=== PATIENT | female | born 1945 | race Caucasian/White ===

== ENCOUNTER → 2016-08-31 | Outpatient (CLI) | payer BC ==
[~2016-08-31] MED LIST: ASPI81TA28 PO; ATV/1 PO; CHOL1000 PO; COEN1CAP37 PO; IRON15SU PO; LISI-461 PO; LISI5TAB PO; LIVALO PO; PRIM50TA29 PO; PROP60CA5 PO; SERT100T PO; TEMA15CA4 PO
--- NOTE | 2016-08-31 08:11 | DIAGNOSTIC IMAGING REPORT ---
CHEST 2 VIEWS ROUTINE HISTORY: Follow-up lung abnormality. J18.9 Lung infection COMPARISON: Chest 08/03/2016. FINDINGS: No focal lung consolidations to suggest pneumonia. No evidence for pulmonary edema. The heart is normal in size. No pleural effusions. No pneumothorax. Mild anterior wedging within the T12 vertebral body. This is likely old. IMPRESSION: No acute process. Electronically signed by: Kwaku Blackman M.D. 08/31/2016 8:08 AM Dictated Date/Time: 08/31/2016 8:07 AM
== END | disposition home or self-care (01) ==
LOC: C.RAD 07:21
PROVIDERS: ATTEND Internal Medicine
DX: J18.9 Pneumonia, unspecified organism (principal)

== ENCOUNTER → 2016-10-26 | Outpatient (CLI) | payer BC ==
--- NOTE | 2016-10-26 16:44 | DIAGNOSTIC IMAGING REPORT ---
RIGHT ANKLE MIN 3 VIEWS ROUTINE CLINICAL HISTORY: M25.571 Right ankle [id number] Right pain COMPARISON: None. DISCUSSION: Small heel spur. No acute bony abnormality. Alignment is anatomic. There is no evidence for soft tissue swelling. IMPRESSION: Small heel spur. Otherwise negative study Electronically signed by: Ivan Bolivar M.D. 10/26/2016 4:42 PM Dictated Date/Time: 10/26/2016 4:42 PM
[2016-10-26 17:42] LABS: BASO % 0.5 %; BASO ABS # 0.03 K/uL (0-0.2); COMPLETE YES; EOS % 2.7 %; HEMATOCRIT 36.3 % (37-47); IG% 0.2 %; LYMPH % 40.3 %; LYMPH ABS # 2.24 K/uL (1.2-3.4); MEAN CELL VOLUME 92.4 fL (80-100); MEAN CORPUSCULAR HEMOGLOBIN 30.3 pg (25-34); MEAN CORPUSCULAR HGB CONC 32.8 g/dl (32-36); MEAN PLATELET VOLUME 10.6 fL (7.4-10.4); MONO % 6.5 %; NEUT % 49.8 %; PLATELET COUNT 208 K/uL (130-400); RED BLOOD COUNT 3.93 M/uL (4.2-5.4); WHITE BLOOD COUNT 5.56 K/uL (4.8-10.8)
[2016-10-26 18:19] LABS: ALT/SGPT 28 U/L (12-78); AST/SGOT 31 U/L (15-37); BLOOD UREA NITROGEN 16 mg/dl (7-18); BUN/CREATININE RATIO 12.6 (10-20); CALCIUM 8.9 mg/dl (8.5-10.1); CARBON DIOXIDE 31 mmol/L (21-32); CHLORIDE 104 mmol/L (98-107); GLUCOSE 83 mg/dl (70-99); POTASSIUM 4.1 mmol/L (3.5-5.1); SODIUM 140 mmol/L (136-145)
[2016-10-26 18:29] LABS: ALB/GLOB RATIO 1.3 (0.9-2); ALKALINE PHOSPHATASE 88 U/L (45-117)
== END | disposition home or self-care (01) ==
LOC: C.RAD1850 16:32
PROVIDERS: ATTEND Internal Medicine
DX: M25.571 Pain in right ankle and joints of right foot (principal); R79.89 Other specified abnormal findings of blood chemistry; D64.9 Anemia, unspecified

== ENCOUNTER → 2016-12-10 | Outpatient (CLI) | payer BC ==
[~2016-12-10] MED LIST changes: +ACET-1311 PO; +ASPEC325 PO; +NAPR500T3 PO; +PRED20TA PO; +ROSU5TAB9 PO; +RXC/5 PO; +RXC5 PO; +TRAM-10 PO; +TYLOTC500 PO
--- NOTE | 2016-12-12 08:29 | MAMMOGRAPHY REPORT ---
BILATERAL DIGITAL SCREENING MAMMOGRAM WITH CAD: 12/10/2016 CLINICAL HISTORY: Routine screening. Patient has no complaints. TECHNIQUE: Bilateral CC and MLO views were obtained. Current study was also evaluated with a Comput er Aided Detection (CAD) system. COMPARISON: Comparison is made to exams dated: 12/05/2015 mammogram, 12/02/2014 mammogram, 11/26/2013 mammogram, 11/12/2012 mammogram, 10/31/2011 ultrasound, and 10/31/2011 mammogram - [facility]. BREAST COMPOSITION: There are scattered areas of fibroglandular density in both breasts. FINDINGS: The parenchymal pattern is unchanged. No developing mass, architectural distortion or clu ster of suspicious microcalcifications is seen in either breast. No suspicious mass, architectural distortion or cluster of microcalcifications is seen. IMPRESSION: ACR BI-RADS CATEGORY 2: BENIGN There is no mammographic evidence of malignancy. A 1 year screening mammogram is recommended. The p atient will receive written notification of the results. Approximately 10% of breast cancers are not detected with mammography. A negative mammographic repor t should not delay biopsy if a clinically suggestive mass is present. Jenny Orellana M.D. ay/:12/11/2016 15:49:18 Director Pediatric: Momo MORRIS(R)(M), [facility] letter sent: Normal 1/2 BI-RADS Code: ACR BI-RADS Category 2: Benign
== END | disposition home or self-care (01) ==
LOC: C.MAMM 07:01
PROVIDERS: ATTEND Obstetrics & Gynecology
DX: Z12.31 Encounter for screening mammogram for malignant neoplasm of breast (principal)

== ENCOUNTER → 2017-04-09 | Outpatient (CLI) | payer BC ==
[~2017-04-09] MED LIST changes: -ACET-1311 PO; -ASPEC325 PO; -NAPR500T3 PO; -PRED20TA PO; -ROSU5TAB9 PO; -RXC/5 PO; -RXC5 PO; -TRAM-10 PO; -TYLOTC500 PO
== END | disposition home or self-care (01) ==
LOC: C.PAPS 14:26
PROVIDERS: ATTEND Obstetrics & Gynecology
DX: Z01.419 Encounter for gynecological examination (general) (routine) without abnormal findings (principal)

== ENCOUNTER → 2017-05-28 | Outpatient (CLI) | payer BC | END | disposition home or self-care (01) | LOC: C.MAMM 15:16 | PROVIDERS: ATTEND Internal Medicine | DX: M85.852 Other specified disorders of bone density and structure, left thigh (principal); M85.851 Other specified disorders of bone density and structure, right thigh ==

== ENCOUNTER 2017-06-01 08:23 | Emergency (ER) | payer BC ==
[~2017-06-01] VITALS: Ht 154.9 cm; Wt 72.7 kg
[2017-06-01 08:31] VITALS: TEMP 36.6; Ht 154.9 cm; Wt 72.7 kg
--- NOTE | 2017-06-01 09:02 | EMERGENCY ROOM VISIT NOTE ---
History Report prepared by Alisa: Brooklyn Avila Under the Supervision of: Dr. Vincent Ann M.D. First contact with patient: 08:50 Chief Complaint: KNEEPAIN Stated Complaint: LEFT KNEE SWOLLEN AND VERY PAINFUL History of Present Illness The patient is a 71 year old female who presents to the Emergency Room with complaints of worsening left knee pain for the past day. Her left knee started hurting yesterday afternoon while she was at work. Throughout the night her pain worsened. This morning she noticed swelling to the knee and pain in her left ankle. She rates her pain as a 9/10 in severity. Movement of the knee exacerbates her pain. The patient denies any recent trauma or injury. She has not changed her shoes recently. Typically the patient sits at a desk at work, but she states for the past week she was on her feet more than usual. She took Tylenol for her pain without any relief. Source of History: patient Onset: yesterday afternoon Position: knee (left) Symptom Intensity: 9/10 Timing: worsening Modifying Factors (Worsening): movement Note: Pt denies trauma or injury. Pt notes left ankle pain. Review of Systems All systems have been listed, reviewed, and are negative other than those previously mentioned. Please see Additional Medical History Sheet. Past Medical & Surgical Medical Problems: (1) CVA (cerebrovascular accident due to intracerebral hemorrhage) (2) Fall (3) Hyperlipidemia (4) Labyrinthitis (5) Lumbar stenosis (6) Vertigo Family History Patient reports no known family medical history. Social History Smoking Status: Never Smoker Alcohol Use: none Drug Use: none Marital Status: Housing Status: lives with family Occupation Status: employed Current/Historical Medications Scheduled Aspirin (Aspirin Ec), 81 MG PO DAILY Cholecalciferol (Vitamin D3), 1,000 UNITS PO DAILY Coenzyme Q10 (Ubidecarenone) (Co Q-10), 200 MG PO HS Iron (Mykidz Iron 10), 0.5 ML PO 430 PM Lisinopril (Prinivil), 5 MG PO QAM Lisinopril (Zestril), 10 MG PO DAILY Prednisone (Prednisone), 20 MG PO BID Primidone (Mysoline), 50 MG PO BID Propranolol Hcl (Inderal La), 60 MG PO QAM Sertraline Hcl (Zoloft), 100 MG PO BID Temazepam (Restoril), 15 MG PO HS [Livalo], 4 MG PO QAM Scheduled PRN Lorazepam (Ativan), 1 MG PO TID PRN Tramadol (Ultram), 50 MG PO Q4H PRN for Pain Allergies Coded Allergies: Sulfa Drugs (Unverified Allergy, Intermediate, HIVES/ SWELLING ALL OVER, 08/03/16) Uncoded Allergies: STEROID PILL (Allergy, Intermediate, DEPRESSION, 04/06/15) Physical Exam Vital Signs Date Time Temp Pulse Resp B/P (MAP) Pulse Ox O2 Delivery O2 Flow Rate FiO2 06/01/17 09:30 78 18 146/95 97 06/01/17 08:31 36.6 77 18 139/83 98 Room Air Physical Exam GENERAL: Patient awake, alert, oriented x 3. Patient follows commands. Patient does not appear toxic. Patient is adequately hydrated and well- nourished. SKIN: No erythema, pallor, cyanosis or rash HEENT: Normal head, pupils equal, reactive to light and accommodation. LUNGS: Clear to auscultation. No wheezes, no rales, no rhonchi. HEART: No murmurs. No gallops. No rubs EXTREMITIES: Patient has some swelling of the left knee, no joint laxity, slight increased tenderness on the lateral aspect of the knee, no erythema or increased warmth, FROM. Left ankle with slight tenderness, no erythema, no swelling, no joint laxity. NEUROLOGIC: Cranial nerves II-XII within normal limits. No gross motor sensory function deficits. Medical Decision & Procedures ER Provider Diagnostic Interpretation: Radiology results as stated below per my review and radiologist interpretation: LEFT KNEE 3 VIEWS CLINICAL HISTORY: Left knee pain and swelling. FINDINGS: AP, crosstable lateral, and sunrise views of left knee are obtained. No prior studies are available for comparison at the time of dictation. The skeletal structures are osteopenic. No fracture is seen. There is minimal tricompartmental degenerative joint space narrowing. A joint effusion is identified. Mild prepatellar soft tissue swelling is noted. IMPRESSION: Mild soft tissue swelling and moderate joint effusion. No left knee fracture is seen. Electronically signed by: Doyle Verde M.D. 06/01/2017 9:00 AM Dictated Date/Time: 06/01/2017 8:58 AM Medications Administered Medications (Trade) Dose Ordered Sig/Janay Route Start Time Stop Time Status Last Admin Dose Admin Prednisone (PredniSONE TAB) 40 mg NOW STAT PO 06/01/17 09:02 06/01/17 09:04 DC 06/01/17 09:14 40 MG ED Course 0850: Past medical records reviewed. The patient was evaluated in room C3. A complete history and physical examination was performed. 0902: Prednisone 40 mg PO 0921: I reassessed the patient at this time. She is feeling better and resting comfortably. I discussed the results and treatment plan with the patient. I answered all pertaining questions that she had. She expressed understanding and verbalized agreement. The patient will be discharged home. Medical Decision Nurses notes reviewed. Medical history sheet reviewed. Differential diagnosis includes but is not limited to: fracture, dislocation, arthritis, bursitis, gout. Examination of the knee reveals no significant erythema or increased warmth. Patient does not appear to have an infected joint. Patient appears to have some inflammation. She has been on her feet a lot more recently. The patient is unable to take NSAIDs and therefore she will be placed on a short course of prednisone. She will also be given a prescription for tramadol. Patient is to follow-up with her family physician or orthopedics if the knee is not improving over the next week. Medication Reconcilliation Current Medication List: was personally reviewed by me Blood Pressure Screening Patient's blood pressure: Elevated blood pressure Blood pressure disposition: Elevated BP felt to be situational Impression Primary Impression: Arthritis of left knee Additional Impression: Joint effusion of knee Scribe Attestation The scribe's documentation has been prepared under my direction and personally reviewed by me in its entirety. I confirm that the note above accurately reflects all work, treatment, procedures, and medical decision making performed by me. Departure Information Dispostion Home / Self-Care Prescriptions Prednisone (Prednisone) 20 Mg Tab 20 MG PO BID, #9 TAB Prov: Vincent Ann M.D. 06/01/17 Tramadol (Ultram) 50 Mg Tab 50 MG PO Q4H Y for Pain, #20 TAB Prov: Vincent Ann M.D. 06/01/17 Referrals RV. Mcclendon MD (PCP) Patient Instructions My [facility] Additional Instructions Wear the Atif wrap for the next 10 days. It may be removed for bathing. 20 mg of prednisone twice a day for 5 days. 1 tramadol every 4 hours as needed for moderate to severe pain. Follow-up with your family physician or orthopedist in one week if symptoms are not improving. Problem Qualifiers
[2017-06-01] MEDS ORDERED: TRAM-10 PO (09:08)
[2017-06-01] MEDS ORDERED: PRED20TA PO (09:08)
[2017-06-01 09:30] VITALS: BP 146/95; PULSE 78; O2SAT 97
== END 2017-06-01 09:30 | disposition home or self-care (01) ==
LOC: C.EDB 08:25 → C.EDC 09:30
DX: M08.462 Pauciarticular juvenile rheumatoid arthritis, left knee (principal); M25.462 Effusion, left knee; I63.9 Cerebral infarction, unspecified; E78.5 Hyperlipidemia, unspecified; Z79.82 Long term (current) use of aspirin

== ENCOUNTER → 2017-06-17 | Outpatient (CLI) | payer BC ==
[~2017-06-17] MED LIST changes: +ACET-1311 PO; +ASPEC325 PO; +NAPR500T3 PO; +PRED20TA PO; +ROSU5TAB9 PO; +RXC/5 PO; +RXC5 PO; +TRAM-10 PO; +TYLOTC500 PO
[2017-06-19 22:16] LABS: HLA-B27** TC 528X NEGATIVE (NEGATIVE)
== END | disposition home or self-care (01) ==
LOC: C.LAB 10:00
PROVIDERS: ATTEND Orthopaedic Surgery
DX: M25.562 Pain in left knee (principal)

== ENCOUNTER → 2017-06-27 | Outpatient (CLI) | payer BC | END | disposition home or self-care (01) | LOC: C.RDSM 16:33 | PROVIDERS: ATTEND Orthopaedic Surgery | DX: T14.8XXA Other injury of unspecified body region, initial encounter (principal); X58.XXXA Exposure to other specified factors, initial encounter ==

== ENCOUNTER 2017-07-01 16:17 | Observation (INO) | payer BC ==
[~2017-07-01] VITALS: Ht 154.9 cm; Wt 70.4 kg
[~2017-07-01 16:17] MED LIST changes: -ACET-1311 PO; -ASPEC325 PO; -ATROPINE SULFATE 0.1 MG/ML 5ML SYR IV PRN; -CEFAZOLIN 2000MG IV PUSH 10 ML IV SCH; -EpHEDrine SULFATE 50MG/5ML SYR ONE; -EpHEDrine SULFATE INJ 50 MG/ML AMP IV PRN; -EpINEphrine HCL INJ 1 MG/ML 5ML SYRINGE ONE; -FENTANYL CITRATE INJ 50 MCG/1 ML 2 ML VIAL ONE; -HYDROmorphone INJ 1 MG/ML SYR IV PRN; -IRON15SU PO; -LACTATED RINGER'S 1000ML 1,000 ML IV SCH; -LIDO 2%/EPINEPHRINE 1:100000 20 ML VIAL INFIL ONE; -LIDOCAINE HCL 2% 2 ML VIAL (20MG/ML) ONE; -LISI-461 PO; -LIVALO PO; -METOCLOPRAMIDE HCL INJ 5 MG/ML 2 ML VIAL IV PRN; -MIDAZOLAM HCL 1 MG/ML 2ML VIAL ONE; -MoRPHine SULFATE 4 MG/ML 1 ML CARP\\VIAL IV PRN; -NAPR500T3 PO; -ONDANSETRON INJ 2 MG/ML 2 ML VIAL IV PRN; -ONDANSETRON INJ 2 MG/ML 2 ML VIAL ONE; -OXYCODONE/ACETAMINOPHEN 5-325 TAB PO PRN; -PRED20TA PO; -PROPOFOL IV EMULSION 10 MG/ML 20 ML VIAL IV ONE; -ROPIVACAINE 0.5% 5 MG/ML 30 ML VIAL ONE; -RXC/5 PO; -RXC5 PO; -SODIUM CHLORIDE 0.9% 1000ML 1,000 ML IV SCH; -TRAM-10 PO; -TYLOTC500 PO
[2017-07-01] MEDS ORDERED: OXYCODONE HCL IR 5 MG TAB (IMMEDIATE RELEASE) PO STA (16:30)
[2017-07-01] MEDS ORDERED: ACETAMINOPHEN 500 MG TAB PO STA (16:30)
--- NOTE | 2017-07-01 17:10 | EMERGENCY ROOM VISIT NOTE ---
History First contact with patient: 16:21 Chief Complaint: KNEEPAIN Stated Complaint: KNEE PAIN History of Present Illness The patient is a 71 year old female who presents to the Emergency Room via EMS with complaints of severe left knee pain. The patient states that she had knee surgery today at the outpatient surgery center in front of the hospital and got home at 2:45 PM. The patient states that her brother brought her home. She does not have anyone at home that can help her. The patient states that she was instructed to ambulate with a walker but did not put any weight on her left leg. She states she cannot get around at home. She took one of the pain pills they gave her but stated she could not read the bottle and cannot get to her glasses to read how many she was able to take. The patient states that she called into the office but they Giving her to someone else to talk to and she finally was talking to the PA and he was telling her a lot of different things which she did not understand therefore she has not been called 911. The patient states that she told orthopedic surgeon prior to the surgery about her situation at home and that she wanted to have it done at the hospital but they told her that she could not and would have to have it done at the surgery center. Review of Systems 10 system review was performed and was negative unless stated otherwise history of present illness. Past Medical/Surgical History Medical Problems: (1) CVA (cerebrovascular accident due to intracerebral hemorrhage) (2) Fall (3) Hyperlipidemia (4) Labyrinthitis (5) Lumbar stenosis (6) Vertigo Family History Patient reports no known family medical history. Social History Smoking Status: Never Smoker Alcohol Use: none Drug Use: none Marital Status: Housing Status: other (lives with her son who is unable to help her due to his medical problems) Occupation Status: retired Current/Historical Medications Scheduled Aspirin (Aspirin Ec), 81 MG PO QAM Cholecalciferol (Vitamin D3), 1,000 UNITS PO QAM Coenzyme Q10 (Ubidecarenone) (Co Q-10), 200 MG PO HS Lisinopril (Prinivil), 5 MG PO QAM Primidone (Mysoline), 50 MG PO BID Propranolol Hcl (Inderal La), 60 MG PO QAM Rosuvastatin Calcium (Rosuvastatin Calcium), 5 MG PO QAM Sertraline Hcl (Zoloft), 100 MG PO BID Temazepam (Restoril), 15 MG PO HS Scheduled PRN Lorazepam (Ativan), 1 MG PO TID PRN Physical Exam Vital Signs Date Time Temp Pulse Resp B/P (MAP) Pulse Ox O2 Delivery O2 Flow Rate FiO2 07/01/17 16:24 36.6 100 18 169/89 97 Room Air Physical Exam GENERAL: 71-year-old white female appears uncomfortable secondary to knee pain. MENTAL Status: Alert and oriented 3. NECK: Supple, no lymphadenopathy noted. No carotid bruits noted. LUNGS: Clear auscultation without wheezes rales or rhonchi. CARDIAC: Regular rate and rhythm without murmur. Pulses is full and equal throughout. ABDOMEN: Positive bowel sounds all 4 quadrants. Soft, nontender to palpation without organomegaly or masses. LEFT KNEE: Swelling is noted through the Atif bandage and white support stocking. I did not remove the stocking and wrap since this was just put on by the surgeon. Medical Decision & Procedures Laboratory Results Test 07/01/17 16:43 ED Course The patient was evaluated. The patient was also independently evaluated byDr. Villalobos who agree with treatment plan. Patient's EMR and medication list were reviewed. By the review of her meds it appears she is to take 1-2 Percocet every 4 hours as needed for pain. She had only taken one. Since the patient cannot ambulate at home and it is too late in the day to get evaluated by occupational therapy and physical therapy she will most likely be admitted for observation to get placed into rehabilitation. The patient was given oxycodone 5 mg by mouth and acetaminophen 1 g by mouth. Santos catheter was placed since she could not urinate on a bedpan. IV access was obtained. CBC and differential and renal profile was ordered. [facility] orthopedics was no longer answering their phone and therefore Dr.'s Gonzalez was consulted. was willing to admit the patient. Medical Decision The patient had knee surgery today and was sent home from outpatient surgery Center with inability to ambulate on her own at home therefore she will need admission under observation for evaluation of physical therapy and occupational therapy evaluation for rehabilitation. [place] Drug Monitoring Program Search Results: patient reviewed within database Medication Reconcilliation Current Medication List: was personally reviewed by me Blood Pressure Screening Blood pressure disposition: Elevated BP felt to be situational Impression Primary Impression: Inability to ambulate due to knee Departure Information Dispostion Being Evaluated By Surgeon Condition GOOD Referrals RV. Mcclendon MD (PCP) Patient Instructions [facility]
[2017-07-01] MEDS ORDERED: RXC/5 PO (17:11)
--- NOTE | 2017-07-01 17:13 | EMERGENCY ROOM VISIT NOTE ---
ED Visit Note First contact with patient: 16:26 The patient was seen and examined with Rayray Bolivar. I agree with the history , physical and findings. Please see the note for disposition and details.
[2017-07-01] MEDS ORDERED: NURSING VERBAL MED ORDER ONE ×2 (17:15→22:15)
[2017-07-01 17:23] LABS: BASO % 0.2 %; BASO ABS # 0.02 K/uL (0-0.2); COMPLETE YES; EOS % 0.7 %; HEMATOCRIT 35.5 % (37-47); IG% 0.3 %; LYMPH % 17.4 %; MEAN CELL VOLUME 90.1 fL (80-100); MEAN CORPUSCULAR HEMOGLOBIN 30.5 pg (25-34); MEAN CORPUSCULAR HGB CONC 33.8 g/dl (32-36); MEAN PLATELET VOLUME 9.6 fL (7.4-10.4); MONO % 6.8 %; NEUT % 74.6 %; PLATELET COUNT 337 K/uL (130-400); RED BLOOD COUNT 3.94 M/uL (4.2-5.4); WHITE BLOOD COUNT 10.37 K/uL (4.8-10.8)
[2017-07-01 17:39] LABS: BUN/CREATININE RATIO 11.8 (10-20); CREATININE 1.04 mg/dl (0.60-1.20); POTASSIUM 3.4 mmol/L (3.5-5.1)
[2017-07-01 18:18] VITALS: BP 159/83; PULSE 99; TEMP 36.6; O2SAT 100; Ht 154.9 cm; Wt 70.4 kg
[2017-07-01] MEDS ORDERED: SODIUM CHLORIDE 0.9% 1000ML 1,000 ML IV SCH (18:30)
[2017-07-01] MEDS ORDERED: HYDROmorphone INJ 1 MG/ML SYR IV PRN (18:30)
[2017-07-01] MEDS ORDERED: RIVAROXABAN 10 MG TAB PO ONE (18:45)
[2017-07-01] MEDS: HYDROCODONE/ACETAMOPHEN 5/325MG TAB PO PRN ×2 (19:39→23:49)
[2017-07-01] MEDS ORDERED: TEMAZEPAM 15 MG CAP PO SCH (22:00)
[2017-07-01 23:08] VITALS: BP 164/88; PULSE 109; TEMP 36.5; O2SAT 94
[2017-07-02] MEDS ORDERED: IV FLUIDS COMPLETED PRN (01:00)
[2017-07-02] MEDS: HYDROCODONE/ACETAMOPHEN 5/325MG TAB PO PRN (03:48)
[2017-07-02 07:13] VITALS: BP 122/73; PULSE 100; TEMP 37; O2SAT 95
[2017-07-02] MEDS ORDERED: NURSING VERBAL MED ORDER ONE ×3 (07:30→10:30)
--- NOTE | 2017-07-02 07:48 | Progress Note ---
Progress Note Date of Service Jul 02, 2017. Progress Note S: Mrs. Dykes seen on AM rounds. She is POD 1 s/p left knee scope, partial medial and lateral meniscectomies, and injection of calcium phosphate cement into left proximal tibia insufficiency fracture. She was not able to perform ADLs at home and so was brought to ER last night by ambulance and admitted. This morning she is having some nausea and pain in her leg. Did not eat anything all day yesterday. O: L leg: dressing c/d/i. AROM limited from 20-40. Distally NVI. A/P: Patient to see PT/OT today. She is WBAT on the L leg with a walker. Santos and IV pain meds discontinued. Nursing to continue RICHARD stockings and continue to ice the knee. Aspirin and TEDs for DVT prophylaxis. SW to eval for placement. May discharge today or tomorrow if appropriate placement found.
[2017-07-02] MEDS: ROSUVASTATIN CALCIUM 5 MG TAB PO SCH (08:57)
[2017-07-02] MEDS: PRIMIDONE 50 MG TAB PO SCH ×2 (08:58→20:49)
[2017-07-02] MEDS: LISINOPRIL 5 MG TAB PO SCH (08:59)
[2017-07-02] MEDS: CHOLECALCIFEROL 1000 INTER.UNIT TAB PO SCH (08:59)
[2017-07-02] MEDS: SERTRALINE HCL 100 MG TAB PO SCH ×2 (08:59→20:49)
[2017-07-02] MEDS ORDERED: ASPIRIN 81 MG ECTAB PO SCH (09:00)
[2017-07-02] MEDS: ASPIRIN 325 MG ECTAB PO SCH (10:22)
[2017-07-02] MEDS ORDERED: OXYCODONE HCL IR 5 MG TAB (IMMEDIATE RELEASE) ONE (10:26)
[2017-07-02] MEDS: LORAZEPAM 1 MG TAB PO PRN (12:21)
--- NOTE | 2017-07-02 13:32 | Orthopedic Progress Note ---
Orthopedic Progress Note Date of Service Jul 02, 2017. Subjective Post OP Day: 1 Reports: complaints (complaining of pain in left knee), pain controlled w PO medications, Denies: chest pain, SOB, nausea / vomiting, light headedness, calf pain Objective calves soft nontender, N/V intact, capillary refill less than 2 sec., dressing C /D/I, incision C/D/I, A&O x3, toes mobile Distal pulses 1+; distal sensation intact. tolerates ankle ROM Date Time Temp Pulse Resp B/P (MAP) Pulse Ox O2 Delivery O2 Flow Rate FiO2 07/02/17 09:24 Room Air 07/02/17 07:13 37.0 100 16 122/73 (89) 95 Room Air 07/01/17 23:50 Room Air 07/01/17 23:08 36.5 109 16 164/88 (113) 94 Room Air 07/01/17 19:00 Room Air 07/01/17 18:18 36.6 99 16 159/83 100 Room Air 07/01/17 17:46 95 18 166/85 99 07/01/17 17:17 103 18 154/101 98 Room Air 07/01/17 16:24 36.6 100 18 169/89 97 Room Air Laboratory Results 24 Hours: Test 07/01/17 16:57 White Blood Count 10.37 K/uL Red Blood Count 3.94 M/uL Hemoglobin 12.0 g/dL Hematocrit 35.5 % Mean Corpuscular Volume 90.1 fL Mean Corpuscular Hemoglobin 30.5 pg Mean Corpuscular Hemoglobin Concent 33.8 g/dl Platelet Count 337 K/uL Mean Platelet Volume 9.6 fL Neutrophils (%) (Auto) 74.6 % Lymphocytes (%) (Auto) 17.4 % Monocytes (%) (Auto) 6.8 % Eosinophils (%) (Auto) 0.7 % Basophils (%) (Auto) 0.2 % Neutrophils # (Auto) 7.74 K/uL Lymphocytes # (Auto) 1.80 K/uL Monocytes # (Auto) 0.71 K/uL Eosinophils # (Auto) 0.07 K/uL Basophils # (Auto) 0.02 K/uL Assessment & Plan Assessment: POD 1 - left knee arthroscopy, PLM, PMM, and treatment of proximal tibia fracture with bone cement Plan: Complaining of continued pain, pain medication as prescribed. Will add Mobic to medications PT/OT WBAT LLE; Full ROM Left knee as tolerated Ice to left knee for pain - changed and lightened dressings today SS for disposition - placement to [facility] or [facility] pending. Will continue to follow. Dr. George notified of findings.
[2017-07-02] MEDS ORDERED: MELOXICAM 7.5 MG TAB PO ONE (14:00)
--- NOTE | 2017-07-02 14:21 | History and Physical ---
History & Physical Date & Time of Service: Jul 02, 2017 at 14:09 Chief Complaint: Status Post Lt Knee Arthroscopy With Lateral Primary Care Physician: RV. Mcclendon MD History of Present Illness Source: patient Patient is a 71-year-old female who Underwent left knee arthroscopy, partial medial and lateral meniscectomies, injection of calcium phosphate cement the left proximal tibia fracture. This was done at the [facility] surgery [place] on July 01, 2017. She was discharged from the surgery Center in stable condition. She was home for 3-4 hours and call our office due to increasing and uncontrolled pain of her left knee. She went to the emergency room For treatment of her left knee pain and was admitted for pain control. Her symptoms of her left knee pain initially developed on May 30 while walking at work. She states that she woke the next morning had significant swelling and difficulty getting dressed the following day. She also states she had decreased range of motion in her left knee after this injury. She then went to the emergency department the following day had x-rays and was advised to use ice and anti-inflammatories for pain relief. No fracture was initially found. Her family physician Dr. William Queen ordered the MRI which showed a fracture the proximal tibia. The fracture appeared to be nondisplaced and from instability-type fracture from osteoporosis. Prior to have an MRI she tried conservative treatment with bracing using a walker, compression, ice, anti- inflammatory use, stretching and range of motion exercises which all were not effective. She was referred to our office for care of her left knee pain and underwent surgery with Dr. George yesterday as previously mentioned. Past Medical/Surgical History Medical Problems: (1) CVA (cerebrovascular accident due to intracerebral hemorrhage) Status: Resolved (2) Fall Status: Resolved (3) Hyperlipidemia Status: Chronic (4) Labyrinthitis Status: Resolved (5) Lumbar stenosis Status: Chronic (6) Vertigo Status: Resolved 7. Essential tremor 8. Anxiety 9. Depression 10. Hypertension 11. Insomnia 12. Scoliosis Past surgical history: 1. Left wrist ganglion cyst excision 2. Tonsillectomy and adenoidectomy 3. Left ankle reconstruction Family History Patient reports no known family medical history. Her mother has a history of having a stroke. Father has history of coronary artery disease with bypass grafting. Social History Smoking Status: Never Smoker Alcohol Use: none Drug Use: none Marital Status: Housing status: lives with family Occupational Status: retired Multi-Drug Resistant Organisms History of MDRO: No Allergies Coded Allergies: Sulfa Antibiotics (Verified Allergy, Intermediate, HIVES/SWELLING ALL OVER , 07/01/17) Uncoded Allergies: STEROID PILL (Allergy, Intermediate, DEPRESSION, 04/06/15) OINTMENT USED FOR SWELLING/INFLAM. (Allergy, Unknown, CAUSED SWELLING, ) Home Medications Scheduled Aspirin (Aspirin Ec), 81 MG PO QAM Cholecalciferol (Vitamin D3), 1,000 UNITS PO QAM Coenzyme Q10 (Ubidecarenone) (Co Q-10), 200 MG PO HS Lisinopril (Prinivil), 5 MG PO QAM Primidone (Mysoline), 50 MG PO BID Propranolol Hcl (Inderal La), 60 MG PO QAM Rosuvastatin Calcium (Rosuvastatin Calcium), 5 MG PO QAM Sertraline Hcl (Zoloft), 100 MG PO BID Temazepam (Restoril), 15 MG PO HS Scheduled PRN Lorazepam (Ativan), 1 MG PO TID PRN Oxycodone HCl (Oxycodone HCl), 5 MG PO Q6 PRN for Pain Review of Systems Constitutional: No fever, No chills, No weight loss, No fatigue Eyes: No worsening of vision, No eye pain, No redness ENT: No hearing loss, No sore throat, No tinnitus, No dental problems Respiratory: No cough, No sputum, No wheezing, No shortness of breath Cardiovascular: No chest pain, No edema, No palpitations Abdomen: + nausea (Due to hospital jaelyn), No pain, No vomiting, No diarrhea, No constipation Musculoskeletal: + joint pain (Left knee since surgery yesterday), No swelling , No calf pain Genitourinary - Female: No dysuria, No urinary frequency, No urinary urgency, No urinary incontinence, No urinary retention Neurologic: No memory loss, No numbness/tingling Psychiatric: + depression symptoms, + anxiety Endocrine: No fatigue Hematologic / Lymphatic: No abnormal bleeding/bruising, No clotting problems Integumentary: No rash, No itch Allergic / Immunologic: No poor healing Physical Exam Vital Signs Date Time Temp Pulse Resp B/P (MAP) Pulse Ox O2 Delivery O2 Flow Rate FiO2 07/02/17 09:24 Room Air 07/02/17 07:13 37.0 100 16 122/73 (89) 95 Room Air 07/01/17 23:50 Room Air 07/01/17 23:08 36.5 109 16 164/88 (113) 94 Room Air 07/01/17 19:00 Room Air 07/01/17 18:18 36.6 99 16 159/83 100 Room Air 07/01/17 17:46 95 18 166/85 99 07/01/17 17:17 103 18 154/101 98 Room Air 07/01/17 16:24 36.6 100 18 169/89 97 Room Air General Appearance: WD/WN, no apparent distress Head: normocephalic, atraumatic Eyes: normal inspection, PERRL, EOMI ENT: normal ENT inspection, hearing grossly normal, TMs normal, pharynx normal Neck: supple, no adenopathy, no carotid bruits, trachea midline Respiratory/Chest: chest non-tender, lungs clear, normal breath sounds, no respiratory distress, no accessory muscle use Cardiovascular: regular rate, rhythm, no edema, no murmur, normal peripheral pulses Abdomen/GI: normal bowel sounds, non tender, soft Extremities/Musculoskelatal: normal inspection, no calf tenderness, normal capillary refill, no pedal edema, + pertinent finding (Left knee dressings were removed and incisions are clean dry and intact. Steri-Strips Intact. No effusion to left knee. Tolerates ankle range of motion. She moves her toes well without discomfort. New dressings were applied and Atif bandage was applied. No ecchymosis, no erythema. No active drainage from incisions. She has pain with any type attempted range of motion or straight leg raising.) Neurologic/Psych: no motor/sensory deficits, alert, normal mood/affect, oriented x 3 Skin: normal color, warm/dry, no rash Diagnostics Laboratory Results Results Past 24 Hours Test 07/01/17 16:57 Range/Units White Blood Count 10.37 4.8-10.8 K/uL Red Blood Count 3.94 4.2-5.4 M/uL Hemoglobin 12.0 12.0-16.0 g/dL Hematocrit 35.5 37-47 % Mean Corpuscular Volume 90.1 80-100 fL Mean Corpuscular Hemoglobin 30.5 25-34 pg Mean Corpuscular Hemoglobin Concent 33.8 32-36 g/dl Platelet Count 337 130-400 K/uL Mean Platelet Volume 9.6 7.4-10.4 fL Neutrophils (%) (Auto) 74.6 % Lymphocytes (%) (Auto) 17.4 % Monocytes (%) (Auto) 6.8 % Eosinophils (%) (Auto) 0.7 % Basophils (%) (Auto) 0.2 % Neutrophils # (Auto) 7.74 1.4-6.5 K/uL Lymphocytes # (Auto) 1.80 1.2-3.4 K/uL Monocytes # (Auto) 0.71 0.11-0.59 K/uL Eosinophils # (Auto) 0.07 0-0.5 K/uL Basophils # (Auto) 0.02 0-0.2 K/uL RDW Standard Deviation 44.8 36.4-46.3 fL RDW Coefficient of Variation 13.6 11.5-14.5 % Immature Granulocyte % (Auto) 0.3 % Immature Granulocyte # (Auto) 0.03 0.00-0.02 K/uL Sodium Level 138 136-145 mmol/L Potassium Level 3.4 3.5-5.1 mmol/L Chloride Level 104 98-107 mmol/L Carbon Dioxide Level 27 21-32 mmol/L Anion Gap 8.0 3-11 mmol/L Blood Urea Nitrogen 12 7-18 mg/dl Creatinine 1.04 0.60-1.20 mg/dl Est Creatinine Clear Calc Drug Dose 44.0 ml/min Estimated GFR () 62.6 Estimated GFR (Non- 54.0 BUN/Creatinine Ratio 11.8 10-20 Random Glucose 90 70-99 mg/dl Calcium Level 9.0 8.5-10.1 mg/dl Impression Assessment and Plan Assessment: Status post Operative day one- left knee arthroscopy, partial medial and lateral meniscectomies, injection of calcium phosphate cement into the left proximal tibia fracture. Plan: Patient was admitted for pain control from the emergency department yesterday. Pain medication was prescribed. Encouraged oral medication. Regular diet was provided which she is tolerating. Physical therapy and occupational therapy consults were placed. She may be weightbearing as tolerated left lower extremity with the assistance of a walker. She can advance activities and full range of motion to her left knee as tolerated. Encouraged ice usage for the left knee. Encouraged elevation and bedside exercises. She was given RICHARD stockings for DVT prophylaxis. Her regular medications were continued. Case management will be consult and for disposition needs. A referral to [facility] has been started. We will continue to follow daily and adjust pain medication regimen as needed for pain control. All questions were answered. Advanced Directives Existing Living Will: Yes Existing Power of Manager Action: No VTE Prophylaxis VTE Risk Assessment Done? Y/N: No
[2017-07-02 15:20] VITALS: BP 151/83; PULSE 109; TEMP 37.7; O2SAT 97
[2017-07-02] MEDS: OXYCODONE HCL IR 5 MG TAB (IMMEDIATE RELEASE) PO PRN (17:03)
[2017-07-02] MEDS ORDERED: SODIUM CHLORIDE 0.65% NA SOLN 45 ML (OCEAN) NAE PRN (18:00)
[2017-07-02] MEDS ORDERED: NURSING DECISION MEDICATION ORDER SCH (18:00)
[2017-07-02] MEDS ORDERED: TEMAZEPAM 15 MG CAP PO ONE (20:48)
[2017-07-02] MEDS ORDERED: TEMAZEPAM 15 MG CAP PO SCH (22:00)
[2017-07-02 22:53] VITALS: BP 139/82; PULSE 94; TEMP 36.7; O2SAT 98
[2017-07-03] MEDS: OXYCODONE HCL IR 5 MG TAB (IMMEDIATE RELEASE) PO PRN ×3 (00:36→15:35)
[2017-07-03] MEDS: ROSUVASTATIN CALCIUM 5 MG TAB PO SCH (07:22)
[2017-07-03] MEDS: CHOLECALCIFEROL 1000 INTER.UNIT TAB PO SCH (07:22)
[2017-07-03] MEDS: LISINOPRIL 5 MG TAB PO SCH (07:22)
[2017-07-03] MEDS: ASPIRIN 325 MG ECTAB PO SCH (07:22)
[2017-07-03] MEDS: SERTRALINE HCL 100 MG TAB PO SCH (07:22)
[2017-07-03] MEDS: PRIMIDONE 50 MG TAB PO SCH (07:23)
[2017-07-03 07:50] VITALS: BP_SYST 145; BP_SYST 160; BP_DIAS 81; BP_DIAS 90; PULSE 90; TEMP 37.1; O2SAT 99
--- NOTE | 2017-07-03 08:10 | Orthopedic Progress Note ---
Orthopedic Progress Note Date of Service Jul 03, 2017. Subjective Post OP Day: 2 Reports: feeling well, pain controlled w PO medications, Denies: chest pain, nausea / vomiting Additional Notes: Patient states her knee feels much better today than it was yesterday. Able to get up to use bedside commode. Tolerating oral diet. Objective calves soft nontender, N/V intact, capillary refill less than 2 sec., dressing C /D/I, A&O x3, toes mobile Date Time Temp Pulse Resp B/P (MAP) Pulse Ox O2 Delivery O2 Flow Rate FiO2 07/03/17 00:15 Room Air 07/02/17 22:53 36.7 94 16 139/82 (101) 98 Room Air 07/02/17 15:30 Room Air 07/02/17 15:20 37.7 109 18 151/83 (105) 97 Room Air 07/02/17 09:24 Room Air Assessment & Plan Assessment: POD 2 - left knee arthroscopy, PLM, PMM, and treatment of proximal tibia fracture with bone cement, improving Plan: Continue icing, tylenol, mobic and oxycodone for pain. Start to wean oxycodone as tolerated. PT/OT WBAT LLE; Full ROM Left knee as tolerated RICHARD GROVERS for DVT prophylaxis SS for disposition - discharge to [facility] or [facility] today once all arrangements are made. Inhouse Planning DVT Prophylaxis: RICHARDs ASA Discharge Planning Discharge Planning: rehab hospital Pain Management: PO Tylenol, Oxy IR DVT Prophylaxis: TEDs ASA Therapy: Physical Therapy, Occupational Therapy Discharge Planning Notes: May discharge to rehab facility today
[2017-07-03] MEDS ORDERED: TYLOTC500 PO (08:40)
[2017-07-03] MEDS ORDERED: RXC5 PO (08:40)
[2017-07-03] MEDS ORDERED: ASPEC325 PO (08:40)
[2017-07-03] MEDS ORDERED: NAPR500T3 PO (08:40)
[2017-07-03 08:42] VITALS: O2SAT 99
--- NOTE | 2017-07-03 08:49 | Discharge Instructions ---
Discharge Instructions Date of Service Jul 03, 2017. Admission Reason for Admission: Status Post Lt Knee Arthroscopy With Lateral Discharge Discharge Diagnosis / Problem: intractable postoperative left knee pain Discharge Goals Goal(s): Decrease discomfort, Improve function, Increase independence Activity Recommendations Activity Level: Up Ad Brittney, Assistance Required (with walker) Therapies: Physical Therapy, Weight Bearing Status (weight-bear as tolerated left lower extremity), Occupational Therapy Weightbearing Status: Left weightbearing (as tolerated) Lifting Limitations: until after follow-up appointment Exercise/Sports Limitations: until after follow-up appointment Shower/Bathe: may shower/bathe in 3 days . Additional Information Patient informed of condition: Yes Advance Directives: No DNR: No Level of Care: Acute Rehab ([facility]) Communicable Disease: No Prognosis: Improving Santos Catheter: No Instructions / Follow-Up Instructions / Follow-Up DIET: * Resume previous diet. MEDICATIONS: * Please take your prescriptions as instructed at your pre-op appointment and/ or see medication discharge instructions listed above. * If concerns develop, call your physician's office at . SPECIAL CARE INSTRUCTIONS: * Ice to left knee 3-4 times a day as needed for pain and swelling. * Elevate left lower extremity as needed for pain and swelling above your heart. * Keep dressing clean, dry, intact. Change dressings daily and as needed. * Please use walker or crutches to assist with ambulation. * You may weight-bear as tolerated left lower extremity. * You may advance range of motion to left knee as tolerated. Do exercises as instructed by therapist as tolerated. * Your surgical extremity may be discolored due to prepping agents used on the skin. A bluish-green tint is a normal variant and should not cause alarm. Call your doctor at [phone] if: * Temperature above 101 degrees * Pain not relieved by pain medicine ordered * There is increased drainage or redness from any incision * You have any unanswered questions, problems or concerns. FOLLOW UP VISIT: * If not already scheduled, please call the office at to schedule a follow-up appointment. * You have a follow up appointment scheduled at [facility] on on 07/16/2017 at 10 AM. Current Hospital Diet Patient's current hospital diet: Regular Diet Discharge Diet Recommended Diet: Regular Diet Pending Studies Studies pending at discharge: no Physician Orders On Transfer Special Precautions: Allowed for full range of motion as tolerated left knee. Dressing Changes: Daily and when necessary Vital Signs: per routine Medical Emergencies . Who to Call and When: Medical Emergencies: If at any time you feel your situation is an emergency, please call 911 immediately. . Non-Emergent Contact Non-Emergency issues call your: Surgeon Call Non-Emergent contact if: temperature is above 101.5, your pain is not controlled, your pain is worsening, wound has increased drainage, wound has increased redness, wound has increased pain . . "Provider Documentation" section prepared by Debbie Rogers. . Core Measure Problem Core Measures: VTE VTE Core Measures Date of VTE Diagnosis: Jul 03, 2017 Time of VTE Diagnosis: 08:42 Reason no anticoag overlap I/P: Treatment provided - N/A Reason no anticoag overlap @DC: Treatment provided - N/A [place] Drug Monitoring Program Search Results: patient reviewed within database, no issues identified
[2017-07-03] MEDS ORDERED: CALCIUM 600MG + VIT D 400 IU TAB PO SCH (09:00)
[2017-07-03] MEDS ORDERED: MELOXICAM 7.5 MG TAB PO SCH (09:00)
[2017-07-03] MEDS: LORAZEPAM 1 MG TAB PO PRN (11:32)
[2017-07-03 11:36] VITALS: BP 136/74; PULSE 88; O2SAT 98
[2017-07-03 15:15] VITALS: BP 147/83; PULSE 90; TEMP 36.7; O2SAT 99
[2017-07-03 15:37] VITALS: BP 136/74; PULSE 88; TEMP 37.1; O2SAT 98
--- NOTE | 2017-07-03 15:38 | Discharge Summary ---
Discharge Summary Date of Service Jul 03, 2017. Discharge Summary Admission Date: Jul 01, 2017 at 17:17 Discharge Date: Jul 03, 2017 Discharge Disposition: Rehab ([facility]) Principal Diagnosis: Intractable post operative left knee pain Procedures: Status post left knee arthroscopy, partial medial and lateral meniscectomies, bone cement injected into her left proximal tibia fracture on 07/01/2017 Consultations: Physical therapy and occupational therapy Pending Studies/Follow-Up: You have a follow-up appointment scheduled on 07/16/17 at 10:00 a.m. at [facility]. Medication Reconciliation New Medications: Acetaminophen (Tylenol) 500 Mg Tab 500-1000 MG PO Q8H PRN for pa, #30 TAB Naproxen (Naproxen) 500 Mg Tab 1 TAB PO BID for 5 Days, #10 TAB 0 Refills Aspirin (Aspirin) 325 Mg Ectab 325 MG PO QAM for 14 Days Oxycodone HCl (Oxycodone HCl) 5 Mg Tab 5-10 MG PO Q4H PRN for Pain, #30 TAB Continued Medications: Cholecalciferol (Vitamin D3) 1,000 Unit Tab 1000 UNITS PO QAM for 90 Days, TAB 3 Refills Coenzyme Q10 (Ubidecarenone) (Co Q-10) 200 Mg Cap 200 MG PO HS Lisinopril (Prinivil) 5 Mg Tab 5 MG PO QAM Lorazepam (Ativan) 1 Mg Tab 1 MG PO TID PRN, 0 Refills Oxycodone HCl (Oxycodone HCl) 5 Mg Tab 5 MG PO Q6 PRN for Pain Primidone (Mysoline) 50 Mg Tab 50 MG PO BID Propranolol Hcl (Inderal La) 60 Mg Cap 60 MG PO QAM, CAP Rosuvastatin Calcium (Rosuvastatin Calcium) 5 Mg Tab 5 MG PO QAM Sertraline Hcl (Zoloft) 100 Mg Tab 100 MG PO BID Temazepam (Restoril) 15 Mg Cap 15 MG PO HS, 0 Refills Discontinued Medications: Aspirin (Aspirin Ec) 81 Mg Tab 81 MG PO QAM Admission Information HPI (per Admitting provider): Patient is a 71-year-old female who Underwent left knee arthroscopy, partial medial and lateral meniscectomies, injection of calcium phosphate cement the left proximal tibia fracture. This was done at the [facility] on July 01, 2017. She was discharged from the surgery Center in stable condition. She was home for 3-4 hours and call our office due to increasing and uncontrolled pain of her left knee. She went to the emergency room For treatment of her left knee pain and was admitted for pain control. Her symptoms of her left knee pain initially developed on May 30 while walking at work. She states that she woke the next morning had significant swelling and difficulty getting dressed the following day. She also states she had decreased range of motion in her left knee after this injury. She then went to the emergency department the following day had x-rays and was advised to use ice and anti-inflammatories for pain relief. No fracture was initially found. Her family physician Dr. William Queen ordered the MRI which showed a fracture the proximal tibia. The fracture appeared to be nondisplaced and from instability-type fracture from osteoporosis. Prior to have an MRI she tried conservative treatment with bracing using a walker, compression, ice, anti- inflammatory use, stretching and range of motion exercises which all were not effective. She was referred to our office for care of her left knee pain and underwent surgery with Dr. George yesterday as previously mentioned. Physical Exam (per Admitting): General Appearance: WD/WN, no apparent distress Head: normocephalic, atraumatic Eyes: normal inspection, PERRL, EOMI ENT: normal ENT inspection, hearing grossly normal, TMs normal, pharynx normal Neck: supple, no adenopathy, no carotid bruits, trachea midline Respiratory/Chest: chest non-tender, lungs clear, normal breath sounds, no respiratory distress, no accessory muscle use Cardiovascular: regular rate, rhythm, no edema, no murmur, normal peripheral pulses Abdomen/GI: normal bowel sounds, non tender, soft Extremities/Musculoskelatal: normal inspection, no calf tenderness, normal capillary refill, no pedal edema, + pertinent finding (Left knee dressings were removed and incisions are clean dry and intact. Steri-Strips Intact. No effusion to left knee. Tolerates ankle range of motion. She moves her toes well without discomfort. New dressings were applied and Atif bandage was applied. No ecchymosis, no erythema. No active drainage from incisions. She has pain with any type attempted range of motion or straight leg raising.) Neurologic/Psych: no motor/sensory deficits, alert, normal mood/affect, oriented x 3 Skin: normal color, warm/dry, no rash Hospital Course Patient is a 71-year-old female who was admitted on Saturday after her surgery on her left knee performed at the [facility]. She had undergone left knee arthroscopy, partial medial and lateral meniscectomies and implantation of bone cement for her left proximal tibia fracture. She was discharged from the surgery center in stable condition. While she was home, she had significant increase in pain in her left knee and inability to maneuver around her house on her own. She presented to the emergency room for evaluation. She was admitted by the on-call orthopedic surgeon for pain control and placement. She was admitted on 07/02/2017. During her hospital stay oral pain medication was prescribed. Her pain improved over the 48 hours that she was an inpatient. She was given a regular diet which she tolerated. Would occasionally make her nauseated but she was able to continue to eat. She was placed on aspirin 325 mg for DVT prophylaxis. RICHARD stockings were placed. On postoperative day 1 her dressings on her left knee were changed. She was followed by Dr. George during her stay. She was seen and evaluated on postoperative day 1 by physical therapy and occupational therapy. She was allowed to be out of bed as tolerated with the assistance of a walker, weight- bear as tolerated left lower extremity and allowed to progress range of motion on her left knee as tolerated. Vital signs were stable during her admission. Case management and transition social worker were consulted for disposition. Due to her living on her own and having too much pain to adequately get around it was determined that she would need an inpatient rehabilitation stay versus care home facility. Insurance off was obtained. She requested [facility]. She was discharged to [facility] on 07/03/2017 in stable condition. Discharge instructions were provided. Follow-up as scheduled postoperatively. Total time spent on discharge = This includes examination of the patient, discharge planning, medication reconciliation, and communication with other providers. Discharge Instructions Discharge Instructions Date of Service Jul 03, 2017. Admission Reason for Admission: Status Post Lt Knee Arthroscopy With Lateral Discharge Discharge Diagnosis / Problem: intractable postoperative left knee pain Discharge Goals Goal(s): Decrease discomfort, Improve function, Increase independence Activity Recommendations Activity Level: Up Ad Brittney, Assistance Required (with walker) Therapies: Physical Therapy, Weight Bearing Status (weight-bear as tolerated left lower extremity), Occupational Therapy Weightbearing Status: Left weightbearing (as tolerated) Lifting Limitations: until after follow-up appointment Exercise/Sports Limitations: until after follow-up appointment Shower/Bathe: may shower/bathe in 3 days . Additional Information Patient informed of condition: Yes Advance Directives: No DNR: No Level of Care: Acute Rehab ([facility]) Communicable Disease: No Prognosis: Improving Santos Catheter: No Instructions / Follow-Up Instructions / Follow-Up DIET: * Resume previous diet. MEDICATIONS: * Please take your prescriptions as instructed at your pre-op appointment and/ or see medication discharge instructions listed above. * If concerns develop, call your physician's office at . SPECIAL CARE INSTRUCTIONS: * Ice to left knee 3-4 times a day as needed for pain and swelling. * Elevate left lower extremity as needed for pain and swelling above your heart. * Keep dressing clean, dry, intact. Change dressings daily and as needed. * Please use walker or crutches to assist with ambulation. * You may weight-bear as tolerated left lower extremity. * You may advance range of motion to left knee as tolerated. Do exercises as instructed by therapist as tolerated. * Your surgical extremity may be discolored due to prepping agents used on the skin. A bluish-green tint is a normal variant and should not cause alarm. Call your doctor at [phone] if: * Temperature above 101 degrees * Pain not relieved by pain medicine ordered * There is increased drainage or redness from any incision * You have any unanswered questions, problems or concerns. FOLLOW UP VISIT: * If not already scheduled, please call the office at to schedule a follow-up appointment. * You have a follow up appointment scheduled at [facility] on on 07/16/2017 at 10 AM. Current Hospital Diet Patient's current hospital diet: Regular Diet Discharge Diet Recommended Diet: Regular Diet Pending Studies Studies pending at discharge: no Physician Orders On Transfer Special Precautions: Allowed for full range of motion as tolerated left knee. Dressing Changes: Daily and when necessary Vital Signs: per routine Medical Emergencies . Who to Call and When: Medical Emergencies: If at any time you feel your situation is an emergency, please call 911 immediately. . Non-Emergent Contact Non-Emergency issues call your: Surgeon Call Non-Emergent contact if: temperature is above 101.5, your pain is not controlled, your pain is worsening, wound has increased drainage, wound has increased redness, wound has increased pain . . "Provider Documentation" section prepared by Debbie Rogers. . Core Measure Problem Core Measures: VTE VTE Core Measures Date of VTE Diagnosis: Jul 03, 2017 Time of VTE Diagnosis: 08:42 Reason no anticoag overlap I/P: Treatment provided - N/A Reason no anticoag overlap @DC: Treatment provided - N/A [place] Drug Monitoring Program Search Results: patient reviewed within database, no issues identified
== END 2017-07-03 16:30 ==
LOC: EDBD 16:17 → C.EDC 16:18 → C.3E 17:17 → ENRESERV 17:33
PROVIDERS: ADMIT Orthopaedic Surgery Orthopaedic Surgery of the Spine; ATTEND Orthopaedic Surgery
DX: G89.18 Other acute postprocedural pain (principal); M25.562 Pain in left knee; Z98.890 Other specified postprocedural states; E78.5 Hyperlipidemia, unspecified; Z86.73 Personal history of transient ischemic attack (TIA), and cerebral infarction without residual deficits; Z88.2 Allergy status to sulfonamides; Z79.82 Long term (current) use of aspirin

== ENCOUNTER → 2017-07-01 | Day surgery (SDC) | payer BC ==
[2017-06-28 13:12] LABS: HEMATOCRIT 37.4 % (37-47); MEAN CELL VOLUME 91.7 fL (80-100); MEAN CORPUSCULAR HEMOGLOBIN 30.1 pg (25-34); MEAN CORPUSCULAR HGB CONC 32.9 g/dl (32-36); MEAN PLATELET VOLUME 9.6 fL (7.4-10.4); PLATELET COUNT 399 K/uL (130-400); RED BLOOD COUNT 4.08 M/uL (4.2-5.4); WHITE BLOOD COUNT 8.01 K/uL (4.8-10.8)
[2017-06-28 13:20] LABS: INR 1.1 (0.9-1.1); PARTIAL THROMBOPLASTIN RATIO 1.1; PROTHROMBIN TIME (PATIENT) 11.4 SECONDS (9.0-12.0)
[2017-06-28 13:30] LABS: BLOOD UREA NITROGEN 16 mg/dl (7-18); CARBON DIOXIDE 28 mmol/L (21-32); CHLORIDE 101 mmol/L (98-107); CREATININE 1.07 mg/dl (0.60-1.20); POTASSIUM 3.5 mmol/L (3.5-5.1); SODIUM 137 mmol/L (136-145)
[2017-06-28 14:32] VITALS: Ht 153.7 cm; Wt 67.7 kg
[~2017-07-01] VITALS: Ht 153.7 cm; Wt 67.7 kg
[~2017-07-01] MED LIST changes: +ATROPINE SULFATE 0.1 MG/ML 5ML SYR IV PRN; +CEFAZOLIN 2000MG IV PUSH 10 ML IV SCH; +EpHEDrine SULFATE 50MG/5ML SYR ONE; +EpHEDrine SULFATE INJ 50 MG/ML AMP IV PRN; +EpINEphrine HCL INJ 1 MG/ML 5ML SYRINGE ONE; +FENTANYL CITRATE INJ 50 MCG/1 ML 2 ML VIAL ONE; +HYDROmorphone INJ 1 MG/ML SYR IV PRN; +LACTATED RINGER'S 1000ML 1,000 ML IV SCH; +LIDO 2%/EPINEPHRINE 1:100000 20 ML VIAL INFIL ONE; +LIDOCAINE HCL 2% 2 ML VIAL (20MG/ML) ONE; +METOCLOPRAMIDE HCL INJ 5 MG/ML 2 ML VIAL IV PRN; +MIDAZOLAM HCL 1 MG/ML 2ML VIAL ONE; +MoRPHine SULFATE 4 MG/ML 1 ML CARP\\VIAL IV PRN; +ONDANSETRON INJ 2 MG/ML 2 ML VIAL IV PRN; +ONDANSETRON INJ 2 MG/ML 2 ML VIAL ONE; +OXYCODONE/ACETAMINOPHEN 5-325 TAB PO PRN; +PROPOFOL IV EMULSION 10 MG/ML 20 ML VIAL IV ONE; +ROPIVACAINE 0.5% 5 MG/ML 30 ML VIAL ONE; +SODIUM CHLORIDE 0.9% 1000ML 1,000 ML IV SCH
--- NOTE | 2017-07-01 10:52 | History & Physical Bridge - SC ---
H&P Re-Evaluation Bridge Note: I have examined the patient, reviewed the History & Physical and in the interval since the performance of the History & Physical I have noted the following changes of clinical significance: No changes noted
--- NOTE | 2017-07-01 12:00 | Discharge Instructions-SurgCtr ---
Discharge Instructions Date of Service Jul 01, 2017. Visit Reason for Visit: Left Knee Medial Meniscus Tear, Proximal Tibia Fx Discharge Discharge Diagnosis / Problem: s/p Left knee arthroscopy, subchondroplasty proximal tibia Discharge Goals Goal(s): Decrease discomfort, Improve function, Increase independence Medications Stopped Medications Name(s): Stopped al blood thinners for 4 days Activity Recommendations Activity Limitations: as noted below Lifting Limitations: until after follow-up appointment Exercise/Sports Limitations: until after follow-up appointment Shower/Bathe: keep incision dry Driving or Machine Use: when cleared by Dr. George Weightbearing Status: Left non-weightbearing Anesthesia . Post Anesthesia Instructions: If you have had General Anesthesia or IV Sedation: * Do not drive today. * Resume driving when surgeon permits. * Do not make important decisions or sign legal documents today. * Call surgeon for: 1. Temperature elevations greater than 101 degrees F. 2. Uncontrollable pain. 3. Excessive bleeding. 4. Persistent nausea and vomiting. 5. Medication intolerance (nausea, vomiting or rash). * For nausea and vomiting use only clear liquids such as: tea, soda, bouillon until nausea subsides, then gradually increase diet as tolerated. * If you have any concerns or questions, call your surgeon's office. If physician is unavailable and it is an emergency, call 911 or go to the nearest emergency room. . Instructions / Follow-Up Instructions / Follow-Up DIET: * Resume previous diet. MEDICATIONS: * Please take your prescriptions as instructed at your pre-op appointment and/ or see medication discharge instructions listed above. * If concerns develop, call your physician's office at . SPECIAL CARE INSTRUCTIONS: * Ice/Elevate as instructed. * Keep dressing clean, dry, intact. * Your surgical extremity may be discolored due to prepping agents used on the skin. A bluish-green tint is a normal variant and should not cause alarm. Call your doctor at [phone] if: * Temperature above 101 degrees * Pain not relieved by pain medicine ordered * There is increased drainage or redness from any incision * You have any unanswered questions, problems or concerns. FOLLOW UP VISIT: * If not already scheduled, please call the office at to schedule a follow-up appointment. Diet Recommendations Home Diet: resume previous diet Pending Studies Studies pending at discharge: no Medical Emergencies . Who to Call and When: Medical Emergencies: If at any time you feel your situation is an emergency, please call 911 immediately. . Non-Emergent Contact Non-Emergency issues call your: Primary Care Provider . . "Provider Documentation" section prepared by Andrei Moore. . [place] Drug Monitoring Program Search Results: no issues identified
--- NOTE | 2017-07-01 12:40 | [facility] Post Operative Brief Note ---
Immediate Operative Summary Operative Date Jul 01, 2017. Pre-Operative Diagnosis Left Knee Medial Meniscus Tear, Proximal Tibia Fracture Post-Operative Diagnosis Same Procedure(s) Performed Left Knee Arthroscopic Partial Lateral Meniscectomy, Partial Medial Meniscectomy, Injection Of Calcium Phosphate Cement Into Proximal Tibia Fracture Surgeon Dr. George Public Safety Telecommunicator Surgeon(s) Shawna Parham, Fellow Estimated Blood Loss Minimal Findings Medial and lateral meniscus tears debrided to stable margin. Calcium phosphate cement injected into proximal tibia fracture Specimens None Drains None Anesthesia General with local Complication(s) None Disposition Recovery Room / PACU
--- NOTE | 2017-07-01 12:43 | Discharge Instructions-SurgCtr ---
Discharge Instructions Date of Service Jul 01, 2017. Visit Reason for Visit: Left Knee Medial Meniscus Tear, Proximal Tibia Fx Discharge Discharge Diagnosis / Problem: Left knee medial and lateral meniscus tears, proximal tibia fracture Discharge Goals Goal(s): Decrease discomfort, Improve function, Increase independence Medications Stopped Medications Name(s): Stopped al blood thinners for 4 days Activity Recommendations Activity Limitations: per Instructions/Follow-up section Shower/Bathe: no limitations Weightbearing Status: Left toe touch with walker Anesthesia . Post Anesthesia Instructions: If you have had General Anesthesia or IV Sedation: * Do not drive today. * Resume driving when surgeon permits. * Do not make important decisions or sign legal documents today. * Call surgeon for: 1. Temperature elevations greater than 101 degrees F. 2. Uncontrollable pain. 3. Excessive bleeding. 4. Persistent nausea and vomiting. 5. Medication intolerance (nausea, vomiting or rash). * For nausea and vomiting use only clear liquids such as: tea, soda, bouillon until nausea subsides, then gradually increase diet as tolerated. * If you have any concerns or questions, call your surgeon's office. If physician is unavailable and it is an emergency, call 911 or go to the nearest emergency room. . Instructions / Follow-Up Instructions / Follow-Up Post-operative Instructions Dear Patient and Family/Friends, Before you are discharged from the hospital, it is important to know what to expect when you get home after surgery. To that end, we have created this sheet of discharge instructions which covers many commonly asked questions. Make sure you go through this sheet in its entirety with your nurse before you are discharged. Please note that we will go over the specifics of your surgery and recovery when you return for your first post-operative visit. Sincerely, Dr. George Pain Expect to be in a fair amount of pain after surgery. Remember, our goal is not to eliminate your pain, but to make it tolerable. It is a good idea to stay ahead of your pain by taking the medications you were prescribed once you get home. Typically, the pain starts improving 3-7 days after surgery. You should start weaning off the narcotic pain medication (oxycodone, hydrocodone, hydromorphone, morphine) as soon as your pain improves. Please call our office if your pain is not adequately controlled. Ice Ice your operative site at least 5 times a day for 15-30 minutes at a time. Make sure you have a thin cloth between the ice or cooling unit and your skin to prevent nick bite. This is especially important if you received a nerve block. Continue icing your operative site for the first 5-7 days after surgery , then as needed. Diet/Nausea/Vomiting Start by drinking clear liquids and eating crackers. If you can tolerate this, then you may resume your normal diet. If you feel nauseated or vomit, take Zofran/ondansetron (if prescribed). Please call our office if you have intractable nausea or vomiting, or, if after hours, you may go to the Emergency Room for help. Constipation Constipation is a common side effect of narcotic pain medication. If you have not had a bowel movement within 2 days after surgery, we recommend purchasing an over the counter laxative such as Milk of Magnesia, Dulcolax, or Miralax from a local pharmacy, and taking it as instructed. Call our clinic if any questions. Slings and Braces If you were placed in a sling or brace, it must be worn at all times, including sleep. You may remove your sling or brace for physical therapy, home exercises , and showering. The length of time you will be in your brace and range of motion restrictions depends on what surgery you had; these details will be reviewed at your first post-operative appointment. Nerve block The anesthesia team sometimes places a nerve block to help with post-operative pain control. This results in significant numbness and inability to move the extremity. The nerve block usually wears off in 8-12 hours, but sometimes can last up to 24 hours. Please call our office if you are still unable to move your extremity after 24 hours, unless you received a pain pump to take home. Nerve blocks typically wear off quickly, so start taking pain medication as soon as you start feeling soreness near your surgical site. Weight bearing and Range of Motion. Do not bear any weight through your operative extremity immediately after surgery. If you had upper extremity surgery, do not lift anything with that arm. If you are in a knee brace, keep it locked in place until your follow-up. We will discuss your weight bearing, range of motion, and lifting restrictions in detail at your first post-operative appointment. Continuous Passive Motion (CPM) Machine If you were prescribed a CPM machine, it will start after your first post- operative appointment, at which time we will give you instructions on the range of motion settings and duration of treatment Physical therapy You will be given a prescription for physical therapy or occupational therapy at your first post-operative appointment. Typically, patients start therapy within 1 week of surgery Wound care and showering We will inspect your wound at your first post-operative visit, and may do a dressing change at that time. Most patients will be in a water-proof dressing that is removed 14 days after surgery. It is normal to see some dried blood on the dressing. Do not remove your dressing, paper strips or sutures yourself unless you are given permission. Showering is allowed the day after surgery. Do not scrub or remove any dressings. The wound should not be submerged underwater (i.e. in a bathtub or pool) until 4 weeks after surgery RICHARD stockings If you were given white stockings, these are to be worn at all times except to shower (on both legs) for the first 2 weeks after surgery. Driving You may not drive while taking narcotic pain medication or while in a cast, splint, sling or brace. You, the patient, need to make the final determination about when you are safe to drive, however, the earliest you may consider driving after surgery is below: Hand/Wrist/Elbow Surgery: 3 days Shoulder Surgery: 2 weeks Hip,/Knee/Ankle Surgery: 4 weeks Fracture repair: 6 weeks Return to Work Your return to work depends on what surgery was done and what type of work you do. Please bring any paperwork your employer needs completed to your first post -operative visit. Also, bring a description of your job duties, as this helps us to understand what risks you may face at work. Travel Avoid long distance travel (greater than 1 hour) in airplanes and cars for the first 6 weeks after surgery. If you must travel, you need to have a Doppler ultrasound done before you travel to rule out a blood clot in your legs. Follow-up You should have a follow-up appointment already scheduled 1-2 days after surgery. If not, please contact our office to make this appointment before you leave the hospital. When to call the office It is normal to have swelling and bruising in the limb that was operated on. This will improve with time. It is also normal to have fevers for the first 2 days after surgery. Reasons you should call your doctor include: Uncontrolled pain; Nausea, vomiting, or constipation that does not improve with medication; Fevers over 101.5, chills, sweats; Drainage or bleeding from the wound; Foul odor; Spreading areas of redness; Any other concerns Diet Recommendations Home Diet: resume previous diet Procedures Procedures Performed: Left Knee Arthroscopic Partial Lateral Meniscectomy, Partial Medial Meniscectomy, Injection Of Calcium Phosphate Cement Into Proximal Tibia Fracture Pending Studies Studies pending at discharge: no Medical Emergencies . Who to Call and When: Medical Emergencies: If at any time you feel your situation is an emergency, please call 911 immediately. . Non-Emergent Contact Non-Emergency issues call your: Primary Care Provider . . "Provider Documentation" section prepared by Chapin George. . [place] Drug Monitoring Program Search Results: no issues identified
[2017-07-01] MEDS: FENTANYL CITRATE INJ 50 MCG/1 ML 2 ML VIAL IV PRN ×4 (12:51→13:16)
--- NOTE | 2017-07-01 13:37 | OPERATIVE REPORT ---
DATE OF OPERATION: 07/01/2017 PREOPERATIVE DIAGNOSES: Left knee medial and lateral meniscus tears and left proximal tibia insufficiency fracture. POSTOPERATIVE DIAGNOSES: Same. OPERATIONS PERFORMED. 1. Left knee arthroscopy, partial medial and lateral meniscectomies. 2. Arthroscopic assisted treatment of left proximal tibia fracture with injection of calcium phosphate cement. SURGEON: Chapin George MD DIRECTOR EXPERIMENTAL MEDICINE: Artie Parham. ANESTHESIA: General with local. ESTIMATED BLOOD LOSS: Minimal. SPECIMENS: None. COMPLICATIONS: None. INDICATIONS: Ms. Dykes is a 71-year-old female who has had excruciating proximal tibia pain for the last 4 weeks. She has undergone aspiration of her knee as well as corticosteroid injection, which failed to relieve her symptoms. An MRI shows an insufficiency fracture of her proximal medial tibia. MRI also shows tears of both the medial and lateral meniscus. I had a long discussion with her about the diagnoses and treatment options. After reviewing all these, she elected to proceed with the surgery. After reviewing all the risks and benefits of surgery, she elected to proceed. All questions were answered. Informed consent was signed. OPERATIVE FINDINGS: 1. The patella showed diffuse grade 3 chondromalacia. The trochlea showed diffuse grade 1 chondromalacia. 2. Medial and lateral gutters were free of any loose bodies. 3. The ACL and the PCL were intact. 4. The lateral compartment showed a horizontal tear of the lateral meniscus body extending to the posterior horn. There was a grade 3 chondromalacia of the lateral tibial plateau and grade 1 chondromalacia of the lateral femoral condyle. 5. Medial compartment showed a complex tear of the medial meniscus body extending to the posterior horn. There was grade 3 chondromalacia of the medial tibial plateau and grade 1 chondromalacia of the medial femoral condyle. The medial and lateral menisci tears were treated with a partial meniscectomy back to a stable margin. Calcium phosphate cement was then injected in the proximal tibial fracture and an arthroscope was used to remove any small cement fragments. DESCRIPTION OF OPERATION: The patient identified in the preoperative holding area, where surgical site was marked. She was brought back to the main operating room, where she was placed on the operating room table and general anesthesia was administered. All bony prominences were padded. Perioperative antibiotics were administered. She was prepped and draped in the normal sterile fashion. Prior to incision, a multidisciplinary timeout was called. All in the room were in agreement. We began by injecting her portal sites with a total of 8 mL of 2% lidocaine with epinephrine. The anterolateral portal was created and a medial working portal was created under direct visualization. We then performed a diagnostic arthroscopy, revealing the above findings. Once her diagnostic arthroscopy was complete, we introduced the meniscal biters, which were used to trim back the meniscus to a stable margin. The shaver was used to remove all loose fragments. We then moved to the lateral compartment, where we trimmed her horizontal meniscus tear back to stable margins again using a biter and a shaver. Cautery was used to obtain hemostasis of the fat pad. We then removed the arthroscope and brought in the C-arm. After obtaining perfect AP fluoro view of the proximal tibia, we localized the site for the entry of the guide pin for the calcium phosphate injection. Once this was localized, a small stab incision was made in the skin and we spread down under the periosteum of the hemostat. The tip of the drill was placed in the appropriate position on the AP view. We then swung the C-arm around to the lateral view and optimized the position on this view. The drill was then drilled into the proximal tibia under fluoroscopic guidance. Next, the calcium phosphate, which had been mixed on the back table, was injected slowly using a manual digital pressure. The side vents were pointed towards the articular surface and then rotated medially to enter the fracture site for maximal stabilization. Once the digital pressure was too high to continue injecting cement, we then pulled back the cannula approximately 1 cm and repeated the same technique. We then pulled back 1 more centimeter and injected the remainder of the calcium phosphate cement. The calcium phosphate cement was then allowed to harden for the next 10 minutes. The arthroscope was placed into the knee and there was only a few calcium phosphate crystals that had gone through the subchondral fracture up into the joint, which were removed with a sucker shaver. Once we had thoroughly irrigated the knee, we then removed the arthroscope. The portals were closed with 3-0 Monocryl sutures in inverted fashion followed by Steri-Strips. The incisions were injected with 10 mL of 0.5% ropivacaine without epinephrine into each stab incision. A 2 x 2s and Tegaderms were placed followed by compressive dressing. The patient was awoken from anesthesia and transferred to the recovery room in stable condition. POSTOPERATIVE COURSE: The patient will be toe touch weightbearing for the next 2 weeks with her walker. She will start immediate range of motion exercises. No brace. She will be on aspirin for DVT prophylaxis. I attest to the content of the Intraoperative Record and any orders documented therein. Any exception s are noted below.
[2017-07-01 13:42] VITALS: TEMP 36.7
[2017-07-01 14:28] VITALS: BP 144/74; PULSE 90; O2SAT 99
--- NOTE | 2017-07-01 14:34 | Anesthesia Progress Nt - [facility] ---
Anesthesia Post Op Note Date & Time Jul 01, 2017 at 14:34 Vital Signs Pain Intensity: 2 Vital Signs Past 12 Hours Date Time Temp Pulse Resp B/P (MAP) Pulse Ox O2 Delivery O2 Flow Rate FiO2 07/01/17 14:28 90 20 144/74 (97) 99 Room Air 07/01/17 13:42 36.7 88 18 161/87 (111) 97 Room Air 07/01/17 13:29 37.3 79 12 156/73 98 Room Air 07/01/17 13:26 156/73 07/01/17 13:24 78 18 07/01/17 13:24 78 18 96 07/01/17 13:21 164/86 07/01/17 13:19 83 15 98 07/01/17 13:19 83 15 07/01/17 13:16 160/85 07/01/17 13:14 83 11 96 07/01/17 13:14 83 11 07/01/17 13:13 83 13 98 07/01/17 13:13 84 13 07/01/17 13:11 163/87 07/01/17 13:08 84 20 07/01/17 13:08 84 20 99 07/01/17 13:06 170/87 07/01/17 13:03 85 15 100 07/01/17 13:03 85 15 07/01/17 13:02 84 13 07/01/17 13:02 84 13 100 07/01/17 13:01 160/85 07/01/17 12:57 86 15 07/01/17 12:57 85 15 99 07/01/17 12:56 161/94 07/01/17 12:52 84 21 100 07/01/17 12:52 85 21 07/01/17 12:51 168/81 07/01/17 12:47 86 10 100 07/01/17 12:47 86 10 07/01/17 12:46 163/95 07/01/17 12:43 161/85 07/01/17 12:42 36.8 87 12 161/85 98 Diffusion Mask 6 07/01/17 08:41 36.4 83 16 148/82 (104) 96 Room Air Notes Mental Status: alert / awake / arousable, participated in evaluation Pt Amnestic to Procedure: Yes Nausea / Vomiting: adequately controlled Pain: adequately controlled Airway Patency, RR, SpO2: stable & adequate BP & HR: stable & adequate Hydration State: stable & adequate Anesthetic Complications: no major complications apparent
== END | disposition home or self-care (01) ==
LOC: X.SURG 07:52
PROVIDERS: ATTEND Orthopaedic Surgery
DX: S82.102A Unspecified fracture of upper end of left tibia, initial encounter for closed fracture (principal); S83.282A Other tear of lateral meniscus, current injury, left knee, initial encounter; S83.242A Other tear of medial meniscus, current injury, left knee, initial encounter; X58.XXXA Exposure to other specified factors, initial encounter; Y93.01 Activity, walking, marching and hiking; M94.262 Chondromalacia, left knee

== ENCOUNTER → 2017-08-16 | Outpatient (CLI) | payer BC, OTHER ==
[~2017-08-16] MED LIST changes: +ASPEC325 PO; -ASPI81TA28 PO; +NAPR500T3 PO; +ROSU5TAB19 PO; -ROSU5TAB9 PO; +RXC/5 PO; +RXC5 PO; +TYLOTC500 PO
== END | disposition home or self-care (01) ==
LOC: C.RDSM 16:10
PROVIDERS: ATTEND Orthopaedic Surgery
DX: S82.102D Unspecified fracture of upper end of left tibia, subsequent encounter for closed fracture with routine healing (principal); X58.XXXD Exposure to other specified factors, subsequent encounter

== ENCOUNTER → 2017-12-12 | Outpatient (CLI) | payer OTHER ==
[~2017-12-12] MED LIST changes: +NAPR-1231 PO; -NAPR500T3 PO; +PROP60CA26 PO; -PROP60CA5 PO
--- NOTE | 2017-12-12 12:41 | MAMMOGRAPHY REPORT ---
BILATERAL DIGITAL SCREENING MAMMOGRAM TOMOSYNTHESIS WITH CAD: 12/12/2017 CLINICAL HISTORY: Routine screening. Patient has no complaints. TECHNIQUE: Breast tomosynthesis in addition to standard 2D mammography was performed. Current study was also evaluated with a Computer Aided Detection (CAD) system. COMPARISON: Comparison is made to exams dated: 12/10/2016 mammogram, 12/05/2015 mammogram, 12/02/2014 ma mmogram, 11/26/2013 mammogram, 11/12/2012 mammogram, and 10/31/2011 mammogram - [facility]. BREAST COMPOSITION: There are scattered areas of fibroglandular density in both breasts. FINDINGS: No suspicious masses, calcifications, or areas of architectural distortion are noted in ei ther breast. There has been no significant interval change compared to prior exams. IMPRESSION: ACR BI-RADS CATEGORY 1: NEGATIVE There is no mammographic evidence of malignancy. A 1 year screening mammogram is recommended. The pa tient will receive written notification of the results. Approximately 10% of breast cancers are not detected with mammography. A negative mammographic report should not delay biopsy if a clinically suggestive mass is present. Kemi Gupta M.D. ah/:12/12/2017 07:51:16 Instructor Dancing: Kaylyn MORRIS(Es)(M), [facility] letter sent: Normal 1/2 BI-RADS Code: ACR BI-RADS Category 1: Negative
== END | disposition home or self-care (01) ==
LOC: C.MAMM 07:16
PROVIDERS: ATTEND Obstetrics & Gynecology
DX: Z12.31 Encounter for screening mammogram for malignant neoplasm of breast (principal)

== ENCOUNTER 2020-05-05 17:52 | Observation (INO) ==
[2020-05-05] MEDS ORDERED: ACETAMINOPHEN 1,000 MG/100 ML VIAL IV STA (18:42)
[2020-05-05] MEDS ORDERED: DEXAMETHASONE SOD INJ 10 MG/ML VIAL IV ONE (18:42)
[2020-05-05] MEDS ORDERED: SODIUM CHLORIDE 0.9% 1000ML 1,000 ML IV ONE (18:42)
[2020-05-05 18:49] LABS: Basophils # (auto) 0.01 K/uL (0-0.2); Basophils % (auto) 0.1 %; Eosinophils # (auto) 0.09 K/uL (0-0.5); Hematocrit (blood only) 37.6 % (37-47); Hemoglobin 12.6 g/dL (12.0-16.0); Immature Granulocytes # (auto) 0.04 K/uL (0.00-0.02); Immature Granulocytes % (auto) 0.5 %; Lymphocytes # (auto) 1.63 K/uL (1.2-3.4); Lymphocytes % (auto) 18.4 %; Mean Corpuscular Hemoglobin 30.6 pg (25-34); Mean Corpuscular Hgb Conc 33.5 g/dL (32-36); Mean Corpuscular Volume 91.3 fL (80-100); Mean Platelet Volume 10.1 fL (7.4-10.4); Monocytes # (auto) 0.46 K/uL (0.11-0.59); Monocytes % (auto) 5.2 %; Neutrophils # (auto) 6.61 K/uL (1.4-6.5); Neutrophils % (auto) 74.8 %; Platelet Count 217 K/uL (130-400); RDW Coefficient of Variation 13.4 % (11.5-14.5); RDW Standard Deviation 44.6 fL (36.4-46.3); Red Blood Count 4.12 M/uL (4.2-5.4); White Blood Count 8.84 K/uL (4.8-10.8)
--- NOTE | 2020-05-05 18:54 | Emergency Department Note ---
Impression & Plan Muscle weakness of lower extremity, Atypical Parkinsonism, Elevated CPK, Dehydration, Hypokalemia, Hypomagnesemia, Lumbar stenosis, Chronic low back pain ED Provider Note NAME: HERMINIA MONROE AGE: 74 SEX: F ARRIVES VIA: Ambulance INFORMANT: Patient, ED PROVIDER(S): Aldo Small MD CHIEF COMPLAINT: Fall, back pain, LLE weakness PLAN: Disposition: Admit. MEDICAL DECISION MAKING: The patient is a pleasant 74-year-old woman with a past medical history of atypical parkinsonism/tremor, history of hemorrhagic stroke remotely, demy elinating disorder, CKD, mood disorder, hypertension, lumbar stenosis who presents emergency department with complaints of lower back pain and left lower extremity weakness which she reports led to a fall today when she slipped from the toilet when attempting to change her pants which she had urinated herself and and has been ongoing for the past week after she reports she was started on baclofen by her piping design specialist. She denies any symptoms urinary retention or loss of bowel control. She denies any recent fevers, chills, cough, congestion, nausea, vomiting, diarrhea, dysuria. On arrival the patient is chronically ill-appearing but no acute distress, afebrile stable vital signs. She appears clinically dry. She has subtle weakness to the left lower extremity which may be related to pain she reports when flexing at the hip. Reflexes are blunted bilaterally. There is no clonus. She does have mild lower lumbar sacral tenderness without bony crepitus. Mild tenderness extending distally in the sciatic distribution over the left gluteal muscle. Notable scoliosis is appreciated. EKG without overt acute ischemia. Chest x-ray negative for acute process. WBC, H/H and platelets within normal limits. Chemistry without acidosis. BUN/creatinine> 20 consistent with the patient's clinically dry appearance. Potassium 3.2 and magnesium 1.7 with repletion provided. AST 57, nonspecific. CPK 1250 of unclear significance but may be related to the patient's underlying movement disorder. Troponin negative/undetectable. LFTs otherwise unremarkable. Lipase is not elevated. TSH within normal limits. UA without convincing evidence of infection. Alcohol was undetectable. Lyme screen was negative. CT of the head, C-spine, chest, abdomen pelvis was negative for acute process. Given the patient denies any respiratory symptoms right basilar groundglass opacities less likely represent pneumonia at this time. Given the patient's worsening weakness, culminating in fall today reasonable admit the patient for further management and possible MRI. The patient is agreeable with this. Case was discussed with Dr. Ariza, [facility] hospitalist, who will evaluate the patient for admission. Triage Nursing notes reviewed and agree them. Prior medical records reviewed Vital Signs: reviewed and remarkable for no significant abnormalities Differential diagnosis: Infection, dehydration, metabolic abnormality, hypo/hyperglycemia, electrolyte disturbance, anemia, hypoxia, cardiac sources, intracerebral event, toxicologic, neurologic, as well as other pathologies. ER treatment provided: See below Diagnostics interpreted by me: ECG: Normal sinus rhythm, 83 bpm, no ectopy, nonspecific ST and T wave abnormality, no overt ST elevation. Cardiac Monitoring: An order for continuous cardiac monitoring was placed and demonstrated normal sinus rhythm, 83 bpm, no ectopy. Laboratory studies: See below Imaging studies: XR chest 1V portable HISTORY: 74 years-old Female Chest Pain acute atypical chest pain COMPARISON: Chest radiograph 09/23/2019 TECHNIQUE: Portable AP view of the chest FINDINGS: Cardiomediastinal and hilar silhouettes are within normal limits. Calcified plaque of the thoracic aortic arch. No pneumothorax, pleural effusion, airspace consolidation or overt pulmonary edema. Scoliosis of the lumbar spine. Degenerative changes of the spine and shoulders. IMPRESSION: No acute process. -- CT head/brain wo con CLINICAL HISTORY: 74 years-old Female with pain fall, LLE weakness. Acute head injury status post fall TECHNIQUE: Multiple axial CT images of the head were obtained without contrast. A dose lowering technique was utilized adhering to the principles of ALARA. COMPARISON: CT cervical spine of same day, head CT 08/30/2019 FINDINGS: No acute intracranial hemorrhage, midline shift, intracranial mass, hydrocephalus, territorial ischemia or abnormal extra-axial collection. Age- related involutional changes. Patchy white matter hypodensities suggest chronic microvascular ischemic disease. Remote lacunar infarcts of the thalami and lentiform nuclei. The calvarium is intact. The paranasal sinuses, mastoid air cells, and middle ear cavities are clear. IMPRESSION: No acute intracranial abnormality or calvarial fracture. CT cervical spine wo con CT DOSE: 1533.28 mGy.cm CLINICAL HISTORY: 74 years-old Female with pain fall, LLE weakness. Acute neck injury status post fall COMPARISON: CT cervical spine 08/30/2019 TECHNIQUE: Multiple axial CT images of the cervical spine were obtained without contrast. A dose lowering technique was utilized adhering to the principles of ALARA. FINDINGS: Mildly demineralized appearance of the bones. Unchanged probable bone island at C7. Moderate to severe multilevel facet arthrosis with mostly mild multilevel disc space narrowing. Uncovertebral spurring is noted at multiple levels with small posterior disc osteophyte complex formations. No acute fracture or subluxation. Evaluation of the central canal and neuroforamina is better assessed by MRI. Multilevel foraminal narrowing is present. No pneumothorax. Mild biapical pleural-parenchymal scarring. No prevertebral edema. Calcified plaque of the carotid bulbs. IMPRESSION: No acute fracture or subluxation. CHEST CT WITH CONTRAST; CT abdomen and pelvis with IV contrast only HISTORY: Acute chest and abdominal pain status post fall. pain fall, LLE weakness TECHNIQUE: Multiaxial CT images of the chest, abdomen and pelvis were performed following the IV administration of 91 cc of Optiray 320. A dose lowering technique was utilized adhering to the principles of ALARA. COMPARISON: Lumbar spine radiographs 04/26/2020 FINDINGS: CT CHEST: Unremarkable thyroid. Prominent nonenlarged lymph nodes of the mediastinum include 9 mm AP window and 8 mm subcarinal lymph nodes are likely physiologic. Heart is upper limits of normal in size. Moderate coronary artery calcifications. No pericardial effusion. No thoracic aortic aneurysm or dissection. No mediastinal hematoma. Moderate mixed plaque of the thoracic aorta. The opacified pulmonary artery is unremarkable. There is no pneumothorax, pleural effusion, overt pulmonary edema or airspace consolidation typical for pneumonia. Mild dependent subsegmental bibasilar atelectasis. Calcified granuloma of the right middle lobe. There are a few patchy groundglass opacities noted within the right upper and lower lobes. The central airways are patent. Unremarkable soft tissues. Degenerative changes of the shoulders and spine. No acute fracture. CT ABDOMEN/PELVIS: There is no pneumatosis or pneumoperitoneum. Spleen, pancreas, adrenal glands, gallbladder and liver appear unremarkable. Patency of the hepatic and portal veins. Kidneys appear unremarkable. Subcentimeter right renal cyst. Mild urinary bladder wall thickening. Unremarkable uterus and adnexa. Mixed plaque of the abdominal aorta without aneurysm. Unremarkable IVC. No adenopathy. Mild wall thickening of the mid and distal stomach, likely secondary to partial distention. Mild to moderate fecal retention. The appendix is not definitively seen. No secondary signs of acute appendicitis. No retroperitoneal hematoma or free fluid. Degenerative changes of the spine, pelvis and hips. No acute fracture identified. Dextroscoliosis of the upper lumbar spine. IMPRESSION: 1. No acute posttraumatic intrathoracic, intra-abdominal or intrapelvic abnormality. 2. No acute fracture. 3. Mild asymmetric groundglass opacities of the right lower lobe are suspicious for a nonspecific infectious or inflammatory pneumonitis. 4. Additional findings as above. Consultation(s): Case was discussed with Dr. Ariza, [facility] hospitalist, who will evaluate the patient for admission. HPI:The patient is a pleasant 74-year-old woman with a past medical history of atypical parkinsonism/tremor, history of hemorrhagic stroke remotely, demyelinating disorder, CKD, mood disorder, hypertension, lumbar stenosis who presents emergency department with complaints of lower back pain and left lower extremity weakness which she reports led to a fall today when she slipped from the toilet when attempting to change her pants which she had urinated herself an d and has been ongoing for the past week after she reports she was started on baclofen by her piping design specialist. She denies any symptoms urinary retention or loss of bowel control. She denies any recent fevers, chills, cough, congestion, nausea, vomiting, diarrhea, dysuria. ROS: See above HPI for pertinent positives & negatives. A total of 10 systems reviewed and were otherwise negative. PAST MEDICAL HISTORY:See Below PAST SURGICAL HISTORY:See Below FAMILY HISTORY:See Below SOCIAL HISTORY:See Below HOME MEDICATIONS:See Below ALLERGIES:See Below VITALS:See Below PHYSICAL EXAMINATION: GENERAL: Awake, alert, well-appearing, in no distress HENT: Normocephalic, atraumatic. Oropharynx unremarkable. EYES: Normal conjunctiva. Sclera non-icteric. NECK: Supple. No nuchal rigidity. FROM. No JVD. RESPIRATORY: Clear to auscultation. CARDIAC: Regular rate, normal rhythm. Extremities warm and well perfused. Pulses equal. ABDOMEN: Soft, non-distended. No tenderness to palpation. No rebound or guarding. No masses. RECTAL: Deferred. MUSCULOSKELETAL: Chest examination reveals no tenderness. She does have mild lower lumbar sacral tenderness without bony crepitus. Mild tenderness extending distally in the sciatic distribution over the left gluteal muscle. Notable scoliosis is appreciated. No joint edema. LOWER EXTREMITIES: Calves are equal size bilaterally and non-tender. No edema. No discoloration. NEURO: Baseline resting tremor with some cogwheel rigidity. Subtle weakness to the left lower extremity which may be related to pain she reports when flexing at the hip. Reflexes are blunted bilaterally. There is no clonus. SKIN: No rash or jaundice noted. Aldo Small MD Past Med/Surg History Medical History Arthritis Arthritis of left knee Ataxia Carotid atherosclerosis Cerebrovascular disease Cervical disc disease Chronic kidney disease Demyelinating disorder Depression with anxiety Diverticulosis of colon Dyslipidemia Essential tremor Gait disturbance History of carotid artery stenosis History of cerebral artery occlusion History of hypercholesterolemia History of postmenopausal bleeding History of stroke History of subconjunctival hemorrhage History of transient cerebral ischemia Hypertension Insomnia Iron deficiency anemia Joint effusion of knee Lumbar stenosis Mood disorder Osteopenia Overactive bladder Tremor Trigger middle finger of right hand Vitamin D deficiency Surgical History S/P colonoscopy S/P tonsillectomy S/P wrist surgery Family History Mother Breast cancer Brother Hodgkin disease Esophageal adenocarcinoma Father Hypertension Pure hypercholesterolemia Son Osteoporosis Other Cardiac disorder Denies family history of Colon cancer Ovarian cancer Prostate cancer Myocardial infarction Social History Smoking Status: Never smoker Hx Alcohol Use: No Hx Substance Use: No Preferred Language: Hungarian Communication Ability: Effective Visual Impairment: No Limitations Hearing Ability: Normal [employer] Manager Required: No Beliefs That Will Affect Care: None marital status: Current Living Situation: Family current occupational status: employed Feels Safe at Home: Yes Childhood Exposure to Second-Hand Smoke: Yes Dental Care, Regularly: Yes Physical Activity Frequency: Does not Exercise Seatbelt Use: always Sunscreen Use: No Assistive Devices: None and Glasses Allergies Allergies Allergy/AdvReac Type Severity Reaction Status Date / Time Sulfa (Sulfonamide Allergy Intermediate HIVES/SWELLING Verified 05/05/20 19:24 Antibiotics) ALL OVER STEROID PILL Allergy Intermediate DEPRESSION Uncoded 05/05/20 19:24 OINTMENT USED FOR Allergy Unknown CAUSED Uncoded 05/05/20 19:24 SWELLING/INFLAM. SWELLING Home Meds Home Medications Medication Instructions Recorded Confirmed aspirin 81 mg tablet,delayed 81 mg PO DAILY 06/04/19 05/05/20 release evolocumab [Repatha MildredClick] 140 mg SQ .TWICE A MONTH 05/05/20 05/05/20 Previous Rx's Medication Instructions Recorded cholecalciferol (vitamin D3) 25 1,000 units PO DAILY #30 cap 02/26/19 mcg (1,000 unit) capsule coenzyme Q10 100 mg capsule 200 mg PO DAILY #30 cap 02/26/19 lisinopril 5 mg tablet 5 mg PO DAILY #90 tab 05/18/19 primidone 50 mg tablet 50 mg PO BID #150 tab 07/21/19 sertraline 100 mg tablet 100 mg PO BID #180 tab 07/22/19 meclizine 25 mg PO TID PRN #21 tab 09/23/19 lorazepam 1 mg tablet 1 mg PO TID PRN 90 Days #270 tab 12/21/19 temazepam 7.5 mg capsule 7.5 mg PO HS #90 cap 12/21/19 carbidopa 25 mg-levodopa 100 mg 1 tab PO TID 30 Days #270 tab 02/15/20 tablet rosuvastatin 5 mg tablet 5 mg PO DAILY #30 tab 02/26/20 fluticasone propionate 50 1 sprays INTNAS BID #9.9 ml 03/08/20 mcg/actuation nasal spray,suspension propranolol 60 mg capsule,24 60 mg PO DAILY 90 Days #90 cap 05/02/20 hr,extended release Results & Data (ED) Vital Signs Vital Signs - 24 hr 05/05/20 17:55 05/05/20 19:00 05/05/20 19:01 Temperature 36.6 C Temperature Source Oral Pulse Rate 82 82 81 Pulse Rate [Apical] Pulse Rate from SpO2 Sensor 82 82 Pulse Rhythm Regular Pulse Strength Normal Respiratory Rate 20 15 14 Respiratory Effort / Characteristics Non-Labored Spontaneous Respiratory Depth Normal Respiratory Pattern Regular Blood Pressure 152/97 H 169/89 H Blood Pressure Mean 115 111 Blood Pressure Position Sitting Pulse Oximetry 99 99 97 Oxygen Delivery Method Room Air Room Air Room Air Sepsis Recent Fever Within 48 Hours No Sepsis New/Unexplained Change in Mental Status No Sepsis Action Taken by Nursing No Action Required 05/05/20 19:24 05/05/20 19:30 05/05/20 19:31 Temperature Temperature Source Pulse Rate 84 84 Pulse Rate [Apical] 81 Pulse Rate from SpO2 Sensor 84 84 Pulse Rhythm Pulse Strength Respiratory Rate 15 15 13 Respiratory Effort / Characteristics Non-Labored Spontaneous Respiratory Depth Normal Respiratory Pattern Blood Pressure 164/84 H Blood Pressure Mean 92 Blood Pressure Position Pulse Oximetry 99 98 98 Oxygen Delivery Method Room Air Room Air Room Air Sepsis Recent Fever Within 48 Hours Sepsis New/Unexplained Change in Mental Status Sepsis Action Taken by Nursing 05/05/20 20:13 05/05/20 20:30 05/05/20 20:31 Temperature Temperature Source Pulse Rate 88 84 85 Pulse Rate [Apical] Pulse Rate from SpO2 Sensor 88 84 89 Pulse Rhythm Pulse Strength Respiratory Rate 20 12 13 Respiratory Effort / Characteristics Respiratory Depth Respiratory Pattern Blood Pressure 153/96 H 155/80 H Blood Pressure Mean 126 111 Blood Pressure Position Pulse Oximetry 98 97 96 Oxygen Delivery Method Room Air Room Air Room Air Sepsis Recent Fever Within 48 Hours Sepsis New/Unexplained Change in Mental Status Sepsis Action Taken by Nursing 05/05/20 21:00 05/05/20 21:01 05/05/20 21:31 Temperature Temperature Source Pulse Rate 85 83 83 Pulse Rate [Apical] Pulse Rate from SpO2 Sensor 84 83 83 Pulse Rhythm Pulse Strength Respiratory Rate 20 15 15 Respiratory Effort / Characteristics Respiratory Depth Respiratory Pattern Blood Pressure 187/90 H 160/83 H Blood Pressure Mean 107 119 Blood Pressure Position Pulse Oximetry 95 96 96 Oxygen Delivery Method Room Air Room Air Room Air Sepsis Recent Fever Within 48 Hours Sepsis New/Unexplained Change in Mental Status Sepsis Action Taken by Nursing 05/05/20 22:00 05/05/20 22:30 05/05/20 23:00 Temperature Temperature Source Pulse Rate 82 82 79 Pulse Rate [Apical] Pulse Rate from SpO2 Sensor 82 83 Pulse Rhythm Pulse Strength Respiratory Rate 15 19 15 Respiratory Effort / Characteristics Respiratory Depth Respiratory Pattern Blood Pressure 165/87 H 168/82 H 101/80 Blood Pressure Mean 115 93 91 Blood Pressure Position Pulse Oximetry 95 97 Oxygen Delivery Method Room Air Room Air Sepsis Recent Fever Within 48 Hours Sepsis New/Unexplained Change in Mental Status Sepsis Action Taken by Nursing Laboratory Data Attestation: I reviewed the patient's lab results. Result diagrams: 05/05/20 18:25 05/05/20 18:25 Lab Results 05/05/20 05/05/20 05/05/20 Range/Units 18:20 18:25 18:25 WBC 8.84 (4.8-10.8) K/uL RBC 4.12 L (4.2-5.4) M/uL Hgb 12.6 (12.0-16.0) g/dL Hct 37.6 (37-47) % MCV 91.3 (80-100) fL MCH 30.6 (25-34) pg MCHC 33.5 (32-36) g/dL RDW Std Deviation 44.6 (36.4-46.3) fL RDW Coeff of Gene 13.4 (11.5-14.5) % Plt Count 217 (130-400) K/uL MPV 10.1 (7.4-10.4) fL Immature Gran % (Auto) 0.5 % Neut % (Auto) 74.8 % Lymph % (Auto) 18.4 % Yell % (Auto) 5.2 % Eos % (Auto) 1.0 % Baso % (Auto) 0.1 % Neut # (Auto) 6.61 H (1.4-6.5) K/uL Lymph # (Auto) 1.63 (1.2-3.4) K/uL Yell # (Auto) 0.46 (0.11-0.59) K/uL Eos # (Auto) 0.09 (0-0.5) K/uL Baso # (Auto) 0.01 (0-0.2) K/uL Immature Gran # (Auto) 0.04 H (0.00-0.02) K/uL PT 11.5 (9.0-12.0) Seconds INR 1.1 (0.9-1.1) APTT 30.6 (21.0-31.0) Seconds PTT Ratio 1.1 Sodium (136-145) mmol/L Potassium (3.5-5.1) mmol/L Chloride (98-107) mmol/L Carbon Dioxide (21-32) mmol/L Anion Gap (3-11) BUN (7-18) mg/dl Creatinine (0.6-1.2) mg/dl Est Cr Clr Drug Dosing ml/min Est GFR ( Amer) Est GFR (Non-Af Amer) BUN/Creatinine Ratio (10-20) Glucose (70-99) mg/dl Calcium (8.5-10.1) mg/dl Phosphorus (2.5-4.9) mg/dl Magnesium (1.8-2.4) mg/dl Total Bilirubin (0.2-1) mg/dl Direct Bilirubin (0-0.2) mg/dl AST (15-37) U/L ALT (12-78) U/L Alkaline Phosphatase (45-117) U/L Total Creatine Kinase (26-192) U/L Troponin I (0-0.045) ng/ml Total Protein (6.4-8.2) gm/dl Albumin (3.4-5.0) gm/dl Globulin (2.5-4.0) gm/dl Albumin/Globulin Ratio (0.9-2) Lipase (73-393) U/L TSH (0.300-4.500) uIu/ml Urine Color Yellow Urine Appearance Clear (Clear) Urine pH 5.5 (4.5-7.5) Ur Specific [place] 1.017 (1.000-1.030) Urine Protein Negative (Negative) Urine Glucose (UA) Negative (Negative) Urine Ketones 1+ H (Negative) Urine Blood Negative (Negative) Urine Nitrite Negative (Negative) Urine Bilirubin Negative (Negative) Urine Urobilinogen Negative (Negative) Ur Leukocyte Esterase Negative (Negative) Ethyl Alcohol mg/dL (0-3) mg/dl Lyme Disease IgG Ab (Negative) Lyme Disease IgM Ab (Negative) 05/05/20 05/05/20 05/05/20 Range/Units 18:25 18:25 19:09 WBC (4.8-10.8) K/uL RBC (4.2-5.4) M/uL Hgb (12.0-16.0) g/dL Hct (37-47) % MCV (80-100) fL MCH (25-34) pg MCHC (32-36) g/dL RDW Std Deviation (36.4-46.3) fL RDW Coeff of Gene (11.5-14.5) % Plt Count (130-400) K/uL MPV (7.4-10.4) fL Immature Gran % (Auto) % Neut % (Auto) % Lymph % (Auto) % Yell % (Auto) % Eos % (Auto) % Baso % (Auto) % Neut # (Auto) (1.4-6.5) K/uL Lymph # (Auto) (1.2-3.4) K/uL Yell # (Auto) (0.11-0.59) K/uL Eos # (Auto) (0-0.5) K/uL Baso # (Auto) (0-0.2) K/uL Immature Gran # (Auto) (0.00-0.02) K/uL PT (9.0-12.0) Seconds INR (0.9-1.1) APTT (21.0-31.0) Seconds PTT Ratio Sodium 140 (136-145) mmol/L Potassium 3.2 L (3.5-5.1) mmol/L Chloride 103 (98-107) mmol/L Carbon Dioxide 26 (21-32) mmol/L Anion Gap 11.0 (3-11) BUN 20 H (7-18) mg/dl Creatinine 0.93 (0.6-1.2) mg/dl Est Cr Clr Drug Dosing 42.8 ml/min Est GFR ( Amer) 70.2 Est GFR (Non-Af Amer) 60.5 BUN/Creatinine Ratio 21.0 H (10-20) Glucose 72 (70-99) mg/dl Calcium 9.2 (8.5-10.1) mg/dl Phosphorus 3.0 (2.5-4.9) mg/dl Magnesium 1.7 L (1.8-2.4) mg/dl Total Bilirubin 0.5 (0.2-1) mg/dl Direct Bilirubin 0.1 (0-0.2) mg/dl AST 57 H (15-37) U/L ALT 25 (12-78) U/L Alkaline Phosphatase 80 (45-117) U/L Total Creatine Kinase 1250 H (26-192) U/L Troponin I < 0.015 (0-0.045) ng/ml Total Protein 7.2 (6.4-8.2) gm/dl Albumin 3.8 (3.4-5.0) gm/dl Globulin 3.4 (2.5-4.0) gm/dl Albumin/Globulin Ratio 1.1 (0.9-2) Lipase 97 (73-393) U/L TSH 2.110 (0.300-4.500) uIu/ml Urine Color Urine Appearance (Clear) Urine pH (4.5-7.5) Ur Specific [place] (1.000-1.030) Urine Protein (Negative) Urine Glucose (UA) (Negative) Urine Ketones (Negative) Urine Blood (Negative) Urine Nitrite (Negative) Urine Bilirubin (Negative) Urine Urobilinogen (Negative) Ur Leukocyte Esterase (Negative) Ethyl Alcohol mg/dL < 3.0 (0-3) mg/dl Lyme Disease IgG Ab Negative (Negative) Lyme Disease IgM Ab Negative (Negative) Administered Medications Acetaminophen (Acetaminophen 500 Mg Tab) 1,000 mg PO Q8 STEVAN Stop: 06/05/20 01:14 Last Admin: 05/06/20 01:43 Dose: 1,000 mg Documented by: [id number] Lactated Ringer's (Lr) 1,000 mls @ 125 mls/hr IV .Q8H STEVAN Stop: 05/06/20 16:59 Last Admin: 05/06/20 01:42 Dose: 125 mls/hr Documented by: [id number] Magnesium Sulfate/Dextrose (Magnesium Sulfate / D5w) 1 gm in 100 mls @ 50 mls/hr IV ONE ONE Stop: 05/06/20 03:14 Last Admin: 05/06/20 01:42 Dose: 50 mls/hr Documented by: [id number] Lidocaine (Lidocaine 5% 1 Patch) 1 patch TD HS STEVAN Stop: 06/05/20 01:14 Last Admin: 05/06/20 01:44 Dose: Not Given Documented by: [id number] Discontinued Medications Dexamethasone (Dexamethasone Sod Inj 10 Mg/Ml Vial) 10 mg IV NOW ONE Stop: 05/05/20 18:43 Last Admin: 05/05/20 19:15 Dose: 10 mg Documented by: [id number] Sodium Chloride (Nss 1000ml) 1,000 mls @ 999 mls/hr IV .Q1H1M ONE Stop: 05/05/20 19:42 Last Infusion: 05/05/20 19:55 Dose: 0 mls/hr Documented by: [id number] Admin: 05/05/20 19:15 Dose: 999 mls/hr Documented by: [id number] Acetaminophen (Ofirmev) 1,000 mg in 100 mls @ 400 mls/hr IV NOW STA Stop: 05/05/20 18:56 Last Infusion: 05/05/20 19:35 Dose: 0 mls/hr Documented by: [id number] Admin: 05/05/20 19:16 Dose: 400 mls/hr Documented by: [id number] Potassium Chloride (K Brendon / Wtr) 10 meq in 100 mls @ 100 mls/hr IV Q1H STEVAN Stop: 05/05/20 21:29 Last Infusion: 05/05/20 22:47 Dose: 0 mls/hr Documented by: [id number] Admin: 05/05/20 21:27 Dose: 100 mls/hr Documented by: [id number] Infusion: 05/05/20 21:17 Dose: 0 mls/hr Documented by: [id number] Admin: 05/05/20 20:19 Dose: 100 mls/hr Documented by: [id number] Magnesium Sulfate/Dextrose (Magnesium Sulfate / D5w) 1 gm in 100 mls @ 100 mls/hr IV NOW STA Stop: 05/05/20 20:23 Last Infusion: 05/05/20 21:17 Dose: 0 mls/hr Documented by: [id number] Admin: 05/05/20 20:15 Dose: 100 mls/hr Documented by: [id number] Ioversol (Ioversol 100ml) 91 ml IV ONCE ONE Stop: 05/05/20 20:06 Last Admin: 05/05/20 20:05 Dose: 91 ml Documented by: [id number] Potassium Chloride (Potassium Chloride 20 Meq Tabcr) 40 meq PO NOW ONE Stop: 05/06/20 01:16 Last Admin: 05/06/20 01:44 Dose: 40 meq Documented by: [id number] Blood Pressure Blood Pressure Findings: Elevated blood pressure Blood Pressure Disposition: further management by hospitalist Discharge Plan Visit Data Chief Complaint: Leg Weakness, Bilateral Stated Complaint: FALL, LEG WEAKNESS ED Provider: Aldo Small Discharge Problem: Muscle weakness of lower extremity, Atypical Parkinsonism, Elevated CPK, Dehydration, Hypokalemia, Hypomagnesemia, Lumbar stenosis, Chronic low back pain Patient Disposition: Admitted As Inpatient Discharge Instructions Interventions: ED Discharge Assessment Last Done: 05/05/20 23:39 Discharge Problem: Lumbar stenosis Qualifiers: Neurogenic claudication status: unspecified Qualified Code(s): M48.061 - Spinal stenosis, lumbar region without neurogenic claudication Chronic low back pain Qualifiers: Back pain laterality: unspecified Sciatica presence: with sciatica Sciatica laterality: sciatica of left side Qualified Code(s): M54.42 - Lumbago with sciatica, left side
[2020-05-05 18:59] LABS: Alanine Aminotransferase 25 U/L (12-78); Albumin Level 3.8 gm/dl (3.4-5.0); Aspartate Aminotransferase 57 U/L (15-37); Bilirubin Direct 0.1 mg/dl (0-0.2); Blood Urea Nitrogen 20 mg/dl (7-18); Calcium 9.2 mg/dl (8.5-10.1); Carbon Dioxide 26 mmol/L (21-32); Chloride 103 mmol/L (98-107); Creatinine Clr Calc Pharmacy 42.8 ml/min; Est GFR (African American) 70.2; Est GFR (Non-African American) 60.5; Glucose 72 mg/dl (70-99); Lipase 97 U/L (73-393); Magnesium 1.7 mg/dl (1.8-2.4); Potassium 3.2 mmol/L (3.5-5.1); Sodium 140 mmol/L (136-145)
[2020-05-05 19:02] LABS: INR 1.1 (0.9-1.1); Partial Thromboplastin Ratio 1.1; Partial Thromboplastin Time 30.6 Seconds (21.0-31.0); Prothrombin Time 11.5 Seconds (9.0-12.0)
[2020-05-05 19:14] LABS: Albumin Globulin Ratio 1.1 (0.9-2); Alkaline Phosphatase 80 U/L (45-117); Bilirubin,Total 0.5 mg/dl (0.2-1); Creatine Kinase 1250 U/L (26-192); Globulin 3.4 gm/dl (2.5-4.0); Total Protein 7.2 gm/dl (6.4-8.2); Troponin I < 0.015 ng/ml (0-0.045)
[2020-05-05 19:16] LABS: Appearance Urine Clear (Clear); Bilirubin Urine Negative (Negative); Blood Urine Negative (Negative); Color Urine Yellow; Glucose Urine UA Negative (Negative); Ketones Urine 1+ (Negative); Leukocyte Esterase Urine Negative (Negative); Nitrite Urine Negative (Negative); Protein Urine Negative (Negative); Specific Gravity Urine 1.017 (1.000-1.030); Urobilinogen Urine Negative (Negative); pH Urine 5.5 (4.5-7.5)
[2020-05-05] MEDS ORDERED: MAGNESIUM SULFATE / D5W 1 GM/100 ML BAG IV STA (19:24)
[2020-05-05 19:25] LABS: Lyme Ab IgG w/WB Rflx Negative (Negative); Lyme Ab IgM w/WB Rflx Negative (Negative)
--- NOTE | 2020-05-05 19:26 | XRay Report ---
XR chest 1V portable HISTORY: 74 years-old Female Chest Pain acute atypical chest pain COMPARISON: Chest radiograph 09/23/2019 TECHNIQUE: Portable AP view of the chest FINDINGS: Cardiomediastinal and hilar silhouettes are within normal limits. Calcified plaque of the thoracic ao rtic arch. No pneumothorax, pleural effusion, airspace consolidation or overt pulmonary edema. Scolio sis of the lumbar spine. Degenerative changes of the spine and shoulders. IMPRESSION: No acute process. ACT 112: Negative or not required by law. The above report was generated using voice recognition software. It may contain grammatical, syntax o r spelling errors. Electronically signed by: Alvaro Aguillon M.D. 05/05/2020 7:25 PM
[2020-05-05] MEDS ORDERED: IOVERSOL 100ml IV ONE (20:05)
--- NOTE | 2020-05-05 20:11 | CT Scan Report ---
CT head/brain wo con CLINICAL HISTORY: 74 years-old Female with pain fall, LLE weakness. Acute head injury status post fa ll TECHNIQUE: Multiple axial CT images of the head were obtained without contrast. A dose lowering tech nique was utilized adhering to the principles of ALARA. COMPARISON: CT cervical spine of same day, head CT 08/30/2019 FINDINGS: No acute intracranial hemorrhage, midline shift, intracranial mass, hydrocephalus, territorial ischem ia or abnormal extra-axial collection. Age-related involutional changes. Patchy white matter hypodens ities suggest chronic microvascular ischemic disease. 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 The calvarium is intact. The paranasal sinuses, mastoid air cells, and middle ear cavi ties are clear. IMPRESSION: No acute intracranial abnormality or calvarial fracture. ACT 112: Negative or not required by law. The above report was generated using voice recognition software. It may contain grammatical, syntax o r spelling errors. Electronically signed by: Alvaro Aguillon M.D. 05/05/2020 8:10 PM
[2020-05-05] MEDS: POTASSIUM CHLORIDE / WTR 10 MEQ/100 ML PLCT IV SCH ×2 (20:19→21:27)
--- NOTE | 2020-05-05 20:24 | CT Scan Report ---
CT cervical spine wo con CT DOSE: 1533.28 mGy.cm CLINICAL HISTORY: 74 years-old Female with pain fall, LLE weakness. Acute neck injury status post fa ll COMPARISON: CT cervical spine 08/30/2019 TECHNIQUE: Multiple axial CT images of the cervical spine were obtained without contrast. A dose low ering technique was utilized adhering to the principles of ALARA. FINDINGS: Mildly demineralized appearance of the bones. Unchanged probable bone island at C7. Moderat e to severe multilevel facet arthrosis with mostly mild multilevel disc space narrowing. Uncovertebra l spurring is noted at multiple levels with small posterior disc osteophyte complex formations. No ac hoopa fracture or subluxation. Evaluation of the central canal and neuroforamina is better assessed by MRI. Multilevel foraminal narrowing is present. No pneumothorax. Mild biapical pleural-parenchymal scarring. No prevertebral edema. Calcified plaque of the carotid bulbs. IMPRESSION: No acute fracture or subluxation. ACT 112: Negative or not required by law. The above report was generated using voice recognition software. It may contain grammatical, syntax o r spelling errors. Electronically signed by: Alvaro Aguillon M.D. 05/05/2020 8:22 PM
--- NOTE | 2020-05-05 20:36 | CT Scan Report ---
CHEST CT WITH CONTRAST; CT abdomen and pelvis with IV contrast only HISTORY: Acute chest and abdominal pain status post fall. pain fall, LLE weakness TECHNIQUE: Multiaxial CT images of the chest, abdomen and pelvis were performed following the IV admi nistration of 91 cc of Optiray 320. A dose lowering technique was utilized adhering to the principl es of LUIS. COMPARISON: Lumbar spine radiographs 04/26/2020 FINDINGS: CT CHEST: Unremarkable thyroid. Prominent nonenlarged lymph nodes of the mediastinum include 9 mm AP window and 8 mm subcarinal lymph nodes are likely physiologic. Heart is upper limits of normal in size. Moderat e coronary artery calcifications. No pericardial effusion. No thoracic aortic aneurysm or dissection. No mediastinal hematoma. Moderate mixed plaque of the thoracic aorta. The opacified pulmonary artery is unremarkable. There is no pneumothorax, pleural effusion, overt pulmonary edema or airspace consolidation typical f or pneumonia. Mild dependent subsegmental bibasilar atelectasis. Calcified granuloma of the right mid dle lobe. There are a few patchy groundglass opacities noted within the right upper and lower lobes. The central airways are patent. Unremarkable soft tissues. Degenerative changes of the shoulders and spine. No acute fracture. CT ABDOMEN/PELVIS: There is no pneumatosis or pneumoperitoneum. Spleen, pancreas, adrenal glands, gallbladder and liver appear unremarkable. Patency of the hepatic and portal veins. Kidneys appear unremarkable. Subcentime ter right renal cyst. Mild urinary bladder wall thickening. Unremarkable uterus and adnexa. Mixed dejah que of the abdominal aorta without aneurysm. Unremarkable IVC. No adenopathy. Mild wall thickening of the mid and distal stomach, likely secondary to partial distention. Mild to m oderate fecal retention. The appendix is not definitively seen. No secondary signs of acute appendici tis. No retroperitoneal hematoma or free fluid. Degenerative changes of the spine, pelvis and hips. N o acute fracture identified. Dextroscoliosis of the upper lumbar spine. IMPRESSION: 1. No acute posttraumatic intrathoracic, intra-abdominal or intrapelvic abnormality. 2. No acute fracture. 3. Mild asymmetric groundglass opacities of the right lower lobe are suspicious for a nonspecific inf ectious or inflammatory pneumonitis. 4. Additional findings as above. ACT 112: Negative or not required by law. Electronically signed by: Alvaro Aguillon M.D. 05/05/2020 8:35 PM
--- NOTE | 2020-05-05 23:11 | History & Physical Report ---
Date of Service May 05, 2020 Assessment & Plan (1) Fall: Patient with mechanical fall in the home, inability to get up due to back pain and weakness. She has an unsteady gait, requires assistance to the bedside commode. No head trauma or LOC -Fall precautions -PT/OT evaluation Present on Admission?: Yes (2) Urinary incontinence: Patient reports episode of urinary incontinence- large volume of urine passed without sensation of full bladder or urge to urinate. This has been happening to her since beginning the Baclofen appx 2 weeks ago - occurs only at night. She also reports constipation - last BM 6 days ago. She is without saddle anesthesia, rectal tone intact, MS 5/5 in BL LE. ?urinary retention throughout the day with overflow incontinence at night? ?constipation contributing to urinary incontinence? No evidence of UTI on UA -Monitor I/Os, bladder scan and straight cath if needed -Tx of constipation as below -Consider spinal imaging - MRI - patient states she would need to be sedated for this due to extreme claustrophobia Present on Admission?: Yes (3) Constipation: Moderate stool burden noted on CT. Patient reports no BM x 6 days. She typically goes daily -Dulcolax 10mg [place] x 1 -Colace 100mg po BID PRN -Miralax PRN (4) Low magnesium level: Mg = 1.7. May be contributing to weakness -Repleted with 2gm IV -Repeat level in AM Present on Admission?: Yes (5) Low serum potassium: K=3.2. Given 10 mEq in ER -KCl 40mEq x 1 -Repeat chemistry in AM Present on Admission?: Yes (6) Elevated CK: CK elevated at 1250. Most likely secondary to prolonged down time earlier today. 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 Unsteady gait. Patient follows with Neurology -Continue Carbidopa-Levodopa -Continue Ativan PRN -Continue Primidone -Continue Propranolol Present on Admission?: Yes (8) Back pain: Chronic LBP. Improved with IV Tylenol and Dexamethasone -Lidoderm patch -Scheduled Tylenol 1gm PO TID -Consider MRI to evaluate L spine. However, no neurological deficits or evidence of cord compression/cauda equina present on exam at this time Present on Admission?: Yes (9) Hypertension: Blood pressure mildly elevated at 144/82 -Continue home medications - Lisinopril, Propranolol Present on Admission?: Yes (10) Depression with anxiety: Chronic. Stable -Continue Sertraline -Continue Lorazepam PRN Present on Admission?: Yes (11) Dyslipidemia: Chronic -Continue Crestor Present on Admission?: Yes (12) Ataxia: Noted. -Fall precautions -PT/OT evaluation F/E/N - LF at 125mL/hr x 2 liters, electrolyte management as above, PO as tolerated Ppx - low risk for DVT Code - Full per discussion with patient Dispo - Admit to medical floor CT Chest reports some very mild RUL ground glass opacities - patient does not endorse symptoms concerning for COVID-19 at this time - specifically denies fevers/chills/cough/SOB/CP/loss of taste or smell. No sick contacts. No recent travel. Patient works at a [employer] at [employer] - reports wearing a mask and staying away from people. Will not test at this time. History of Present Illness Chief Complaint: fell and couldn't get up loss of urinary control Primary Care Provider: Daniel Ruffin MD Mavis Dykes is a 74yo C female with history of atypical PD, HTN, HLP, CKD presenting after a fall in the home. Patient was recently started on Baclofen to treat muscle spasm in her lower back appx 2 weeks ago. Since she started taking this medication she reports difficulty controlling her bladder. She states that she has frequent episodes of urinary incontinence occurring only at night. She denies dysuria or urgency. No foul smell to the urine or hematuria. She states that she normally feels the sensation of a full bladder and is able to feel when she needs to urinate. This morning she got up and went to the bathroom. She had an episode of urinary incontinence - very large volume. Patient states that she had absolutely no control over her urination and just kept urinating. She then slid off the commode onto her knees and was unable to get up due to diffuse weakness and back pain. She thinks she was down on the ground for a few hours before crawling to a phone to call for assistance. +Constipation - Patient has not had a BM x 6 days +Decreased appetite +Back pain at baseline - now improved after receiving IV Tylenol. ER Course: Ofirmev, Dexamethasone, Mg x 1gm, KCl x 10mEq Allergies Allergy/AdvReac Type Severity Reaction Status Date / Time Sulfa (Sulfonamide Allergy Intermediate HIVES/SWELLING Verified 05/05/20 19:24 Antibiotics) ALL OVER STEROID PILL Allergy Intermediate DEPRESSION Uncoded 05/05/20 19:24 OINTMENT USED FOR Allergy Unknown CAUSED Uncoded 05/05/20 19:24 SWELLING/INFLAM. SWELLING Home Medications Home Medications Medication Instructions Recorded Confirmed Type cholecalciferol (vitamin D3) 25 1,000 units PO DAILY #30 cap 02/26/19 05/05/20 Rx mcg (1,000 unit) capsule coenzyme Q10 100 mg capsule 200 mg PO DAILY #30 cap 02/26/19 05/05/20 Rx lisinopril 5 mg tablet 5 mg PO DAILY #90 tab 05/18/19 05/05/20 Rx aspirin 81 mg tablet,delayed 81 mg PO DAILY 06/04/19 05/05/20 History release primidone 50 mg tablet 50 mg PO BID #150 tab 07/21/19 05/05/20 Rx sertraline 100 mg tablet 100 mg PO BID #180 tab 07/22/19 05/05/20 Rx meclizine 25 mg PO TID PRN #21 tab 09/23/19 05/05/20 Rx lorazepam 1 mg tablet 1 mg PO TID PRN 90 Days #270 tab 12/21/19 05/05/20 Rx temazepam 7.5 mg capsule 7.5 mg PO HS #90 cap 12/21/19 05/05/20 Rx carbidopa 25 mg-levodopa 100 mg 1 tab PO TID 30 Days #270 tab 02/15/20 05/05/20 Rx tablet rosuvastatin 5 mg tablet 5 mg PO DAILY #30 tab 02/26/20 05/05/20 Rx fluticasone propionate 50 1 sprays INTNAS BID #9.9 ml 03/08/20 05/05/20 Rx mcg/actuation nasal spray,suspension propranolol 60 mg capsule,24 60 mg PO DAILY 90 Days #90 cap 05/02/20 05/05/20 Rx hr,extended release evolocumab [Jeff Fuentes] 140 mg SQ .TWICE A MONTH 05/05/20 05/05/20 History Past Med/Surg History Medical History (Updated 05/05/20 @ 23:45 by Yris Ariza DO) Arthritis Arthritis of left knee Ataxia Carotid atherosclerosis Cerebrovascular disease Cervical disc disease Chronic kidney disease Demyelinating disorder Depression with anxiety Diverticulosis of colon Dyslipidemia Essential tremor Gait disturbance History of carotid artery stenosis History of cerebral artery occlusion History of hypercholesterolemia History of postmenopausal bleeding History of stroke History of subconjunctival hemorrhage History of transient cerebral ischemia Hypertension Insomnia Iron deficiency anemia Joint effusion of knee Lumbar stenosis Mood disorder Osteopenia Overactive bladder Tremor Trigger middle finger of right hand Vitamin D deficiency Surgical History S/P colonoscopy S/P tonsillectomy S/P wrist surgery Family History Mother Breast cancer Brother Hodgkin disease Esophageal adenocarcinoma Father Hypertension Pure hypercholesterolemia Son Osteoporosis Other Cardiac disorder Denies family history of Colon cancer Ovarian cancer Prostate cancer Myocardial infarction Social History Smoking Status: Never smoker Hx Alcohol Use: No Hx Substance Use: No Preferred Language: Setswana Visual Impairment: No Limitations Hearing Ability: Normal Beliefs That Will Affect Care: None marital status: Current Living Situation: Family current occupational status: employed Feels Safe at Home: Yes Childhood Exposure to Second-Hand Smoke: Yes Dental Care, Regularly: Yes Physical Activity Frequency: Does not Exercise Seatbelt Use: always Sunscreen Use: No Review of Systems Review of Systems: All systems reviewed & are unremarkable except as noted in HPI & below Patient denies fever/chills/sweats, denies cough/CP/SOB. Denies loss of taste or smell. Physical Exam Physical Exam: General: patient resting comfortably, NAD, chronically ill in appearance, AA&O x 4, +head trauma Skin: warm, dry, intact, no rashes, bruise present on left knee and left elbow HEENT: NC/AT, PERRL, EOMI with limited upward gaze, anicteric sclera, conjunctiva without injection, external ear normal to inspection and nontender, nares patent, dry mucus membranes, dentition intact, no oropharyngeal lesions, neck supple, trachea midline, no LAD, no thyromegaly, no JVD Heart: +S1/S2, regular, no m/r/g Lungs: equal air entry bilaterally, no rales/rhonchi/wheezes Abd: +BS, soft, NT/ND, no masses/organomegaly/ascites Ext: warm, 2+ pulses in UE/LE bilaterally, no clubbing/cyanosis or edema, rectal tone intact Neuro: nonfocal, patient AA&O x 4, speech intact, no facial droop, moving all extremities on command with equal strength 5/5, no saddle anesthesia, rectal tone intact Results & Data Results & Data ([facility]) Vital Signs (Past 12 Hours) Vital Signs Temp Pulse Pulse Resp BP Pulse Ox 05/05/20 22:30 82 19 168/82 H 97 05/05/20 22:00 82 15 165/87 H 95 05/05/20 21:31 83 15 160/83 H 96 05/05/20 21:01 83 15 96 05/05/20 21:00 85 20 187/90 H 95 05/05/20 20:31 85 13 96 05/05/20 20:30 84 12 155/80 H 97 05/05/20 20:13 88 20 153/96 H 98 05/05/20 19:31 84 13 98 05/05/20 19:30 84 15 164/84 H 98 05/05/20 19:24 81 15 99 05/05/20 19:01 81 14 97 05/05/20 19:00 82 15 169/89 H 99 05/05/20 17:55 36.6 C 82 20 152/97 H 99 Laboratory Results Lab Results 05/05/20 05/05/20 05/05/20 Range/Units 18:20 18:25 18:25 WBC 8.84 (4.8-10.8) K/uL RBC 4.12 L (4.2-5.4) M/uL Hgb 12.6 (12.0-16.0) g/dL Hct 37.6 (37-47) % MCV 91.3 (80-100) fL MCH 30.6 (25-34) pg MCHC 33.5 (32-36) g/dL RDW Std Deviation 44.6 (36.4-46.3) fL RDW Coeff of Gene 13.4 (11.5-14.5) % Plt Count 217 (130-400) K/uL MPV 10.1 (7.4-10.4) fL Immature Gran % (Auto) 0.5 % Neut % (Auto) 74.8 % Lymph % (Auto) 18.4 % [place] % (Auto) 5.2 % Eos % (Auto) 1.0 % Baso % (Auto) 0.1 % Neut # (Auto) 6.61 H (1.4-6.5) K/uL Lymph # (Auto) 1.63 (1.2-3.4) K/uL [place] # (Auto) 0.46 (0.11-0.59) K/uL Eos # (Auto) 0.09 (0-0.5) K/uL Baso # (Auto) 0.01 (0-0.2) K/uL Immature Gran # (Auto) 0.04 H (0.00-0.02) K/uL PT 11.5 (9.0-12.0) Seconds INR 1.1 (0.9-1.1) APTT 30.6 (21.0-31.0) Seconds PTT Ratio 1.1 Sodium (136-145) mmol/L Potassium (3.5-5.1) mmol/L Chloride (98-107) mmol/L Carbon Dioxide (21-32) mmol/L Anion Gap (3-11) BUN (7-18) mg/dl Creatinine (0.6-1.2) mg/dl Est Cr Clr Drug Dosing ml/min Est GFR ( Amer) Est GFR (Non-Af Amer) BUN/Creatinine Ratio (10-20) Glucose (70-99) mg/dl Calcium (8.5-10.1) mg/dl Phosphorus (2.5-4.9) mg/dl Magnesium (1.8-2.4) mg/dl Total Bilirubin (0.2-1) mg/dl Direct Bilirubin (0-0.2) mg/dl AST (15-37) U/L ALT (12-78) U/L Alkaline Phosphatase (45-117) U/L Total Creatine Kinase (26-192) U/L Troponin I (0-0.045) ng/ml Total Protein (6.4-8.2) gm/dl Albumin (3.4-5.0) gm/dl Globulin (2.5-4.0) gm/dl Albumin/Globulin Ratio (0.9-2) Lipase (73-393) U/L TSH (0.300-4.500) uIu/ml Urine Color Yellow Urine Appearance Clear (Clear) Urine pH 5.5 (4.5-7.5) Ur Specific [place] 1.017 (1.000-1.030) Urine Protein Negative (Negative) Urine Glucose (UA) Negative (Negative) Urine Ketones 1+ H (Negative) Urine Blood Negative (Negative) Urine Nitrite Negative (Negative) Urine Bilirubin Negative (Negative) Urine Urobilinogen Negative (Negative) Ur Leukocyte Esterase Negative (Negative) Ethyl Alcohol mg/dL (0-3) mg/dl Lyme Disease IgG Ab (Negative) Lyme Disease IgM Ab (Negative) 05/05/20 05/05/20 05/05/20 Range/Units 18:25 18:25 19:09 WBC (4.8-10.8) K/uL RBC (4.2-5.4) M/uL Hgb (12.0-16.0) g/dL Hct (37-47) % MCV (80-100) fL MCH (25-34) pg MCHC (32-36) g/dL RDW Std Deviation (36.4-46.3) fL RDW Coeff of Gene (11.5-14.5) % Plt Count (130-400) K/uL MPV (7.4-10.4) fL Immature Gran % (Auto) % Neut % (Auto) % Lymph % (Auto) % [place] % (Auto) % Eos % (Auto) % Baso % (Auto) % Neut # (Auto) (1.4-6.5) K/uL Lymph # (Auto) (1.2-3.4) K/uL [place] # (Auto) (0.11-0.59) K/uL Eos # (Auto) (0-0.5) K/uL Baso # (Auto) (0-0.2) K/uL Immature Gran # (Auto) (0.00-0.02) K/uL PT (9.0-12.0) Seconds INR (0.9-1.1) APTT (21.0-31.0) Seconds PTT Ratio Sodium 140 (136-145) mmol/L Potassium 3.2 L (3.5-5.1) mmol/L Chloride 103 (98-107) mmol/L Carbon Dioxide 26 (21-32) mmol/L Anion Gap 11.0 (3-11) BUN 20 H (7-18) mg/dl Creatinine 0.93 (0.6-1.2) mg/dl Est Cr Clr Drug Dosing 42.8 ml/min Est GFR ( Amer) 70.2 Est GFR (Non-Af Amer) 60.5 BUN/Creatinine Ratio 21.0 H (10-20) Glucose 72 (70-99) mg/dl Calcium 9.2 (8.5-10.1) mg/dl Phosphorus 3.0 (2.5-4.9) mg/dl Magnesium 1.7 L (1.8-2.4) mg/dl Total Bilirubin 0.5 (0.2-1) mg/dl Direct Bilirubin 0.1 (0-0.2) mg/dl AST 57 H (15-37) U/L ALT 25 (12-78) U/L Alkaline Phosphatase 80 (45-117) U/L Total Creatine Kinase 1250 H (26-192) U/L Troponin I < 0.015 (0-0.045) ng/ml Total Protein 7.2 (6.4-8.2) gm/dl Albumin 3.8 (3.4-5.0) gm/dl Globulin 3.4 (2.5-4.0) gm/dl Albumin/Globulin Ratio 1.1 (0.9-2) Lipase 97 (73-393) U/L TSH 2.110 (0.300-4.500) uIu/ml Urine Color Urine Appearance (Clear) Urine pH (4.5-7.5) Ur Specific [place] (1.000-1.030) Urine Protein (Negative) Urine Glucose (UA) (Negative) Urine Ketones (Negative) Urine Blood (Negative) Urine Nitrite (Negative) Urine Bilirubin (Negative) Urine Urobilinogen (Negative) Ur Leukocyte Esterase (Negative) Ethyl Alcohol mg/dL < 3.0 (0-3) mg/dl Lyme Disease IgG Ab Negative (Negative) Lyme Disease IgM Ab Negative (Negative) Diagnostic Findings CT cervical spine wo con CT DOSE: 1533.28 mGy.cm CLINICAL HISTORY: 74 years-old Female with pain fall, LLE weakness. Acute neck injury status post fall COMPARISON: CT cervical spine 08/30/2019 TECHNIQUE: Multiple axial CT images of the cervical spine were obtained without contrast. A dose lowering technique was utilized adhering to the principles of ALARA. FINDINGS: Mildly demineralized appearance of the bones. Unchanged probable bone island at C7. Moderate to severe multilevel facet arthrosis with mostly mild multilevel disc space narrowing. Uncovertebral spurring is noted at multiple levels with small posterior disc osteophyte complex formations. No acute fracture or subluxation. Evaluation of the central canal and neuroforamina is better assessed by MRI. Multilevel foraminal narrowing is present. No pneumothorax. Mild biapical pleural-parenchymal scarring. No prevertebral edema. Calcified plaque of the carotid bulbs. IMPRESSION: No acute fracture or subluxation. ACT 112: Negative or not required by law. The above report was generated using voice recognition software. It may contain grammatical, syntax or spelling errors. Electronically signed by: Alvaro Aguillon M.D. 05/05/2020 8:22 PM Dictated: 05/05/202017 Transcribed: 05/05/202017 CT head/brain wo con CLINICAL HISTORY: 74 years-old Female with pain fall, LLE weakness. Acute head injury status post fall TECHNIQUE: Multiple axial CT images of the head were obtained without contrast. A dose lowering technique was utilized adhering to the principles of ALARA. COMPARISON: CT cervical spine of same day, head CT 08/30/2019 FINDINGS: No acute intracranial hemorrhage, midline shift, intracranial mass, hydrocephalus, territorial ischemia or abnormal extra-axial collection. Age- related involutional changes. Patchy white matter hypodensities suggest chronic microvascular ischemic disease. 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 The calvarium is intact. The paranasal sinuses, mastoid air cells, and middle ear cavities are clear. IMPRESSION: No acute intracranial abnormality or calvarial fracture. ACT 112: Negative or not required by law. The above report was generated using voice recognition software. It may contain grammatical, syntax or spelling errors. Electronically signed by: Alvaro Aguillon M.D. 05/05/2020 8:10 PM Dictated: 05/05/202006 Transcribed: 05/05/202006 XR chest 1V portable HISTORY: 74 years-old Female Chest Pain acute atypical chest pain COMPARISON: Chest radiograph 09/23/2019 TECHNIQUE: Portable AP view of the chest FINDINGS: Cardiomediastinal and hilar silhouettes are within normal limits. Calcified plaque of the thoracic aortic arch. No pneumothorax, pleural effusion, airspace consolidation or overt pulmonary edema. Scoliosis of the lumbar spine. Degenerative changes of the spine and shoulders. IMPRESSION: No acute process. ACT 112: Negative or not required by law. The above report was generated using voice recognition software. It may contain grammatical, syntax or spelling errors. Electronically signed by: Alvaro Aguillon M.D. 05/05/2020 7:25 PM Dictated: 05/05/201923 Transcribed: 05/05/201923 CHEST CT WITH CONTRAST; CT abdomen and pelvis with IV contrast only HISTORY: Acute chest and abdominal pain status post fall. pain fall, LLE weakness TECHNIQUE: Multiaxial CT images of the chest, abdomen and pelvis were performed following the IV administration of 91 cc of Optiray 320. A dose lowering technique was utilized adhering to the principles of ALARA. COMPARISON: Lumbar spine radiographs 04/26/2020 FINDINGS: CT CHEST: Unremarkable thyroid. Prominent nonenlarged lymph nodes of the mediastinum include 9 mm AP window and 8 mm subcarinal lymph nodes are likely physiologic. Heart is upper limits of normal in size. Moderate coronary artery calcifications. No pericardial effusion. No thoracic aortic aneurysm or dissection. No mediastinal hematoma. Moderate mixed plaque of the thoracic aorta. The opacified pulmonary artery is unremarkable. There is no pneumothorax, pleural effusion, overt pulmonary edema or airspace consolidation typical for pneumonia. Mild dependent subsegmental bibasilar atelectasis. Calcified granuloma of the right middle lobe. There are a few patchy groundglass opacities noted within the right upper and lower lobes. The central airways are patent. Unremarkable soft tissues. Degenerative changes of the shoulders and spine. No acute fracture. CT ABDOMEN/PELVIS: There is no pneumatosis or pneumoperitoneum. Spleen, pancreas, adrenal glands, gallbladder and liver appear unremarkable. Patency of the hepatic and portal veins. Kidneys appear unremarkable. Subcentimeter right renal cyst. Mild urinary bladder wall thickening. Unremarkable uterus and adnexa. Mixed plaque of the abdominal aorta without aneurysm. Unremarkable IVC. No adenopathy. Mild wall thickening of the mid and distal stomach, likely secondary to partial distention. Mild to moderate fecal retention. The appendix is not definitively seen. No secondary signs of acute appendicitis. No retroperitoneal hematoma or free fluid. Degenerative changes of the spine, pelvis and hips. No acute fracture identified. Dextroscoliosis of the upper lumbar spine. IMPRESSION: 1. No acute posttraumatic intrathoracic, intra-abdominal or intrapelvic abnormality. 2. No acute fracture. 3. Mild asymmetric groundglass opacities of the right lower lobe are suspicious for a nonspecific infectious or inflammatory pneumonitis. 4. Additional findings as above. ACT 112: Negative or not required by law. Electronically signed by: Alvaro Aguillon M.D. 05/05/2020 8:35 PM Dictated: 05/05/202023 Transcribed: 05/05/[address] WITH CONTRAST; CT abdomen and pelvis with IV contrast only HISTORY: Acute chest and abdominal pain status post fall. pain fall, LLE weakness TECHNIQUE: Multiaxial CT images of the chest, abdomen and pelvis were performed following the IV administration of 91 cc of Optiray 320. A dose lowering technique was utilized adhering to the principles of ALARA. COMPARISON: Lumbar spine radiographs 04/26/2020 FINDINGS: CT CHEST: Unremarkable thyroid. Prominent nonenlarged lymph nodes of the mediastinum include 9 mm AP window and 8 mm subcarinal lymph nodes are likely physiologic. Heart is upper limits of normal in size. Moderate coronary artery calcif ications. No pericardial effusion. No thoracic aortic aneurysm or dissection. No mediastinal hematoma. Moderate mixed plaque of the thoracic aorta. The opacified pulmonary artery is unremarkable. There is no pneumothorax, pleural effusion, overt pulmonary edema or airspace consolidation typical for pneumonia. Mild dependent subsegmental bibasilar atelectasis. Calcified granuloma of the right middle lobe. There are a few patchy groundglass opacities noted within the right upper and lower lobes. The central airways are patent. Unremarkable soft tissues. Degenerative changes of the shoulders and spine. No acute fracture. CT ABDOMEN/PELVIS: There is no pneumatosis or pneumoperitoneum. Spleen, pancreas, adrenal glands, gallbladder and liver appear unremarkable. Patency of the hepatic and portal veins. Kidneys appear unremarkable. Subcentimeter right renal cyst. Mild urinary bladder wall thickening. Unremarkable uterus and adnexa. Mixed plaque of the abdominal aorta without aneurysm. Unremarkable IVC. No adenopathy. Mild wall thickening of the mid and distal stomach, likely secondary to partial distention. Mild to moderate fecal retention. The appendix is not definitively seen. No secondary signs of acute appendicitis. No retroperitoneal hematoma or free fluid. Degenerative changes of the spine, pelvis and hips. No acute fracture identified. Dextroscoliosis of the upper lumbar spine. IMPRESSION: 1. No acute posttraumatic intrathoracic, intra-abdominal or intrapelvic abnormality. 2. No acute fracture. 3. Mild asymmetric groundglass opacities of the right lower lobe are suspicious for a nonspecific infectious or inflammatory pneumonitis. 4. Additional findings as above. ACT 112: Negative or not required by law. Electronically signed by: Alvaro Aguillon M.D. 05/05/2020 8:35 PM Dictated: 05/05/202023 Transcribed: 05/05/202023 Code Status & VTE Plan Code Status FULL CODE PG Care Time/CCT Total # of Minutes Spent Total Time Spent with Patient: Total time spent is greater than 50% in coordination of care (as documented) at patient's floor/unit and/or counseling patient: Coding Level of Care Code 75432 Initial Inpt Care Lvl 3 Diagnoses Fall W19.XXXA Encounter type: initial encounter Urinary incontinence R32 Urinary Incontinence type: unspecified incontinence Constipation K59.00 Constipation type: unspecified constipation type Low magnesium level R79.0 Low serum potassium E87.6 Elevated CK R74.8 Atypical Parkinsonism G20 Back pain M54.5; G89.29 Back pain location: low back pain Chronicity: chronic Back pain laterality: unspecified Sciatica presence: unspecified whether sciatica present Hypertension I10 Hypertension type: essential hypertension Depression with anxiety F41.8 Dyslipidemia E78.5 Ataxia R27.0 (1) Urinary incontinence Urinary Incontinence type: unspecified incontinence Qualified Code(s): R32 - Unspecified urinary incontinence (2) Hypertension Hypertension type: essential hypertension Qualified Code(s): I10 - Essential (primary) hypertension (3) Constipation Constipation type: unspecified constipation type Qualified Code(s): K59.00 - Constipation, unspecified (4) Fall Encounter type: initial encounter Qualified Code(s): W19.XXXA - Unspecified fall, initial encounter (5) Back pain Back pain location: low back pain Chronicity: chronic Back pain laterality: unspecified Sciatica presence: unspecified whether sciatica present Qualified Code(s): M54.5 - Low back pain; G89.29 - Other chronic pain
[2020-05-06] MEDS ORDERED: bisacodyL 10 MG SUPP PR STA (00:44)
[2020-05-06] MEDS ORDERED: DOCUSATE SODIUM 100 MG CAP PO PRN (00:44)
[2020-05-06] MEDS ORDERED: POLYETHYLENE (MIRALAX) 17 GM PACK PO PRN (00:44)
[2020-05-06] MEDS ORDERED: POTASSIUM CHLORIDE 20 MEQ TABCR PO ONE (01:15)
[2020-05-06] MEDS ORDERED: INFLUENZA ADMINISTRATION CHARGE ONE (01:15)
[2020-05-06] MEDS ORDERED: MAGNESIUM SULFATE / D5W 1 GM/100 ML BAG IV ONE (01:15)
[2020-05-06] MEDS ORDERED: INFLUENZA VACCINE HIGH DOSE 65+ 0.5 ML SYR IM ONE (01:15)
[2020-05-06] MEDS: LACTATED RINGER'S 1,000 ML IV SCH ×2 (01:42→09:14)
[2020-05-06] MEDS: ACETAMINOPHEN 500 MG TAB PO SCH ×4 (01:43→20:39)
[2020-05-06] MEDS: LIDOCAINE 5% 1 PATCH TD SCH ×2 (01:44→20:40)
[2020-05-06] MEDS ORDERED: Nursing to Pharmacy Communication SCH (02:30)
[2020-05-06 06:35] LABS: Basophils # (auto) 0.01 K/uL (0-0.2); Basophils % (auto) 0.1 %; Hematocrit (blood only) 35.9 % (37-47); Hemoglobin 11.6 g/dL (12.0-16.0); Immature Granulocytes # (auto) 0.01 K/uL (0.00-0.02); Immature Granulocytes % (auto) 0.1 %; Lymphocytes # (auto) 1.15 K/uL (1.2-3.4); Lymphocytes % (auto) 15.3 %; Mean Corpuscular Hemoglobin 29.5 pg (25-34); Mean Corpuscular Hgb Conc 32.3 g/dL (32-36); Mean Corpuscular Volume 91.3 fL (80-100); Mean Platelet Volume 10.3 fL (7.4-10.4); Monocytes # (auto) 0.33 K/uL (0.11-0.59); Monocytes % (auto) 4.4 %; Neutrophils # (auto) 6.04 K/uL (1.4-6.5); Neutrophils % (auto) 80.1 %; Platelet Count 231 K/uL (130-400); RDW Coefficient of Variation 13.5 % (11.5-14.5); RDW Standard Deviation 45.2 fL (36.4-46.3); Red Blood Count 3.93 M/uL (4.2-5.4); White Blood Count 7.54 K/uL (4.8-10.8)
[2020-05-06 07:05] LABS: BUN Creatinine Ratio 22.1 (10-20); Calcium 8.9 mg/dl (8.5-10.1); Est GFR (African American) 68.4; Magnesium 2.4 mg/dl (1.8-2.4); Potassium 3.9 mmol/L (3.5-5.1)
[2020-05-06] MEDS ORDERED: bisacodyL 10 MG SUPP PR SCH (09:00)
[2020-05-06] MEDS: PRIMIDONE 50 MG TAB PO SCH ×2 (09:11→20:40)
[2020-05-06] MEDS: PROPRANOLOL HCL 60 MG LA CAP PO SCH (09:11)
[2020-05-06] MEDS: ROSUVASTATIN CALCIUM 5 MG TAB PO SCH (09:12)
[2020-05-06] MEDS: SERTRALINE HCL 100 MG TABLET PO SCH ×2 (09:12→20:40)
[2020-05-06] MEDS: CARBIDOPA/LEVODOPA 25/100MG TAB PO SCH ×3 (09:12→20:40)
[2020-05-06] MEDS: ASPIRIN 81 MG ECTAB PO SCH (09:13)
[2020-05-06] MEDS: lisinopriL 5 MG TAB PO SCH (09:13)
--- NOTE | 2020-05-06 13:59 | Hospitalist Progress Note ---
Date of Service May 06, 2020 Assessment & Plan (1) Fall: Patient with mechanical fall in the home, inability to get up due to back pain and weakness. She has an unsteady gait, requires assistance to the bedside commode. No head trauma or LOC -Fall precautions -PT/OT recs for rehab, awaiting insurance auth (2) Urinary incontinence: Patient reports episode of urinary incontinence- large volume of urine passed without sensation of full bladder or urge to urinate. This has been happening to her since beginning the Baclofen appx 2 weeks ago - occurs only at night. She also reports constipation - last BM 6 days ago. She is without sad dle anesthesia, rectal tone intact, MS 5/5 in BL LE. ?urinary retention throughout the day with overflow incontinence at night? ?constipation contributing to urinary incontinence? No evidence of UTI on UA -Monitor I/Os, bladder scan and straight cath if needed -Tx of constipation as below -Consider spinal imaging if not improving off of baclofen - MRI - patient states she would need to be sedated for this due to extreme claustrophobia (3) Constipation: Moderate stool burden noted on CT. Patient reports no BM x 6 days. -Dulcolax 10mg IN x 1 -Colace 100mg po BID PRN -Miralax PRN side effect of baclofen also, monitor (4) Low magnesium level: Mg = 1.7 on admission and improving Monitor (5) Low serum potassium: K=3.2 on admission and improving -Repeat chemistry in AM (6) Elevated CK: CK elevated at 1250 on admission and now improving. Early rhabdo secondary to prolonged down time earlier today. 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 Unsteady gait. Patient follows with Neurology -Continue Carbidopa-Levodopa -Continue Ativan PRN -Continue Primidone -Continue Propranolol (8) Back pain: Chronic LBP. Improved with IV Tylenol and Dexamethasone -Lidoderm patch -Scheduled Tylenol 1gm PO TID -Consider MRI to evaluate L spine. However, no neurological deficits or evidence of cord compression/cauda equina present on exam at this time d/c baclofen secondary to above (9) Hypertension: Blood pressure mildly elevated at 144/82 -Continue home medications - Lisinopril, Propranolol (10) Depression with anxiety: Chronic. Stable -Continue Sertraline -Continue Lorazepam PRN (11) Dyslipidemia: Chronic -Continue Crestor (12) Ataxia: Noted. -Fall precautions -PT/OT evaluation Lyme neg TSH WNL Ppx - low risk for DVT Code - Full per discussion with patient Dispo - Admit to medical floor CT Chest reports some very mild RUL ground glass opacities - patient does not endorse symptoms concerning for COVID-19 at this time - specifically denies fevers/chills/cough/SOB/CP/loss of taste or smell. No sick contacts. No recent travel. Patient works at a [employer] at [employer] - reports wearing a mask and staying away from people. Will not test at this time. Admission and Anticipated Discharge Date Admission Date: May 05, 2020 Subjective Pt feels better than [employer], but still feels unsteady walking and does not feel she can manage the stairs in her home. Tolerating PO without issue. Still no bowel movement prior to our discussion. No abd pain due to this, just feels constipated. Pt asked me to get nursing as she felt like she might have a bowel movement. Nursing let me know that she did have a bowel movement and feeling much better. Pt states that baclofen was not helping her back spasms. She states that her urinary incontinence and constipation started shortly after starting the baclofen. Pt denies fever, SOB, chest pain, abd pain, n/v/c/d, LE pain or swelling. Ongoing LBP. Review of Systems Review of Systems: Pertinent positives and negatives reviewed in HPI--all others negative Physical Exam Constitutional: WD/WN, vitals as above Eyes: normal visual dennis by confrontation and + anicteric sclerae Neck: normal visual inspection and trachea midline Respiratory: normal respiratory effort, lungs clear to auscultation Cardiovascular: Rate/Rhythm: regular rate and regular rhythm Gastrointestinal (Abdomen): Inspection/Auscultation: abdomen not distended Percussion/Palpation: abdomen soft; abdomen nontender Musculoskeletal: Head/Neck/Chest: normocephalic and head atraumatic negative for edema, peripheral pulses intact Skin: no rashes, warm and dry Neurologic: awake; not confused Speech / Cognition: normal speech Psychiatric: A+Ox3, euthymic affect Results & Data Results & Data ([facility]) Vital Signs (Past 12 Hours) Vital Signs Temp Pulse Resp BP Pulse Ox 05/06/20 11:18 36.5 C 78 17 161/85 H 97 05/06/20 07:18 70 18 145/75 H 97 PG Care Time/CCT Total # of Minutes Spent Total Time Spent with Patient: Total time spent is greater than 50% in coordination of care (as documented) at patient's floor/unit and/or counseling patient: Coding Level of Care Code 62379 Subseq Hosp Care Lvl 3 Diagnoses Fall W19.XXXA Encounter type: initial encounter Urinary incontinence R32 Urinary Incontinence type: unspecified incontinence Constipation K59.00 Constipation type: unspecified constipation type Low magnesium level R79.0 Low serum potassium E87.6 Elevated CK R74.8 Atypical Parkinsonism G20 Back pain M54.5; G89.29 Back pain location: low back pain Chronicity: chronic Back pain laterality: unspecified Sciatica presence: unspecified whether sciatica present Hypertension I10 Hypertension type: essential hypertension Depression with anxiety F41.8 Dyslipidemia E78.5 Ataxia R27.0 (1) Fall Encounter type: initial encounter Qualified Code(s): W19.XXXA - Unspecified fall, initial encounter (2) Urinary incontinence Urinary Incontinence type: unspecified incontinence Qualified Code(s): R32 - Unspecified urinary incontinence (3) Constipation Constipation type: unspecified constipation type Qualified Code(s): K59.00 - Constipation, unspecified (4) Back pain Back pain location: low back pain Chronicity: chronic Back pain laterality: unspecified Sciatica presence: unspecified whether sciatica present Qualified Code(s): M54.5 - Low back pain; G89.29 - Other chronic pain (5) Hypertension Hypertension type: essential hypertension Qualified Code(s): I10 - Essential (primary) hypertension
[2020-05-06] MEDS: LORazepam 1 MG TAB PO PRN ×2 (15:17→20:42)
[2020-05-06] MEDS: TEMAZEPAM 7.5 MG CAPSULE PO SCH (20:39)
[2020-05-07] MEDS: ACETAMINOPHEN 500 MG TAB PO SCH ×3 (07:16→22:01)
[2020-05-07 07:18] LABS: BUN Creatinine Ratio 20.2 (10-20); Calcium 8.6 mg/dl (8.5-10.1); Creatinine Clr Calc Pharmacy 45.3 ml/min; Est GFR (African American) 77.1; Est GFR (Non-African American) 66.6; Magnesium 2.2 mg/dl (1.8-2.4); Potassium 4.3 mmol/L (3.5-5.1)
[2020-05-07] MEDS: ASPIRIN 81 MG ECTAB PO SCH (08:25)
[2020-05-07] MEDS: PROPRANOLOL HCL 60 MG LA CAP PO SCH (08:26)
[2020-05-07] MEDS: SERTRALINE HCL 100 MG TABLET PO SCH ×2 (08:26→20:27)
[2020-05-07] MEDS: PRIMIDONE 50 MG TAB PO SCH ×2 (08:26→20:27)
[2020-05-07] MEDS: ROSUVASTATIN CALCIUM 5 MG TAB PO SCH (08:26)
[2020-05-07] MEDS: lisinopriL 5 MG TAB PO SCH (08:26)
[2020-05-07] MEDS: CARBIDOPA/LEVODOPA 25/100MG TAB PO SCH ×3 (08:27→20:27)
[2020-05-07] MEDS: LORazepam 1 MG TAB PO PRN ×3 (08:32→20:29)
--- NOTE | 2020-05-07 09:32 | Electrocardiogram Report ---
Test Reason : Blood Pressure : / mmHG Vent. Rate : 083 BPM Atrial Rate : 083 BPM P-R Int : 158 ms QRS Dur : 074 ms QT Int : 364 ms P-R-T Axes : 062 031 015 degrees QTc Int : 427 ms Poor data quality, interpretation may be adversely affected Normal sinus rhythm Diffuse Minor Nonspecific T wave abnormality Abnormal ECG When compared with ECG of 23-SEP-2019 07:49, Nonspecific T wave abnormality now present Confirmed by Armand Parmar ([id number]) on 05/07/2020 9:32:11 AM Referred By: REFERRED SELF Confirmed By:Armand Parmar
[2020-05-07] MEDS ORDERED: MAGNESIUM HYDROXIDE SUSP 30 ML UDC PO PRN (10:31)
[2020-05-07] MEDS ORDERED: MAGNESIUM HYDROXIDE SUSP 30 ML UDC PO ONE (10:31)
[2020-05-07] MEDS: SENNA 8.6 MG TAB PO SCH (11:22)
[2020-05-07] MEDS: SODIUM CHLORIDE 0.45 % 1,000 ML IV SCH ×2 (11:24→22:05)
[2020-05-07] MEDS: LACTOBACILLUS ACIDOPHILUS 1 GM PACK PO SCH ×2 (14:21→17:06)
--- NOTE | 2020-05-07 15:41 | Hospitalist Progress Note ---
Date of Service May 07, 2020 Assessment & Plan (1) Fall: Patient with mechanical fall in the home, inability to get up due to back pain and weakness. She has an unsteady gait, requires assistance to the bedside commode. No head trauma or LOC -Fall precautions -PT/OT recs for rehab, awaiting insurance auth (2) Urinary incontinence: Patient reports episode of urinary incontinence- large volume of urine passed without sensation of full bladder or urge to urinate. This has been happening to her since beginning the Baclofen appx 2 weeks ago - occurs only at night. She also reports constipation - last BM 6 days ago. She is without sad dle anesthesia, rectal tone intact, MS 5/5 in BL LE. ?urinary retention throughout the day with overflow incontinence at night? ?constipation contributing to urinary incontinence? No evidence of UTI on UA -Monitor I/Os, bladder scan and straight cath if needed -Tx of constipation as below -Consider spinal imaging if not improving off of baclofen - MRI - patient states she would need to be sedated for this due to extreme claustrophobia (3) Constipation: Moderate stool burden noted on CT. Patient reports no BM x 6 days. -Dulcolax 10mg [place] x 1 -Colace 100mg po BID PRN -Miralax PRN could be side effect of baclofen also, monitor Add probiotics, MOM, senna (4) Low magnesium level: Mg = 1.7 on admission and improving Monitor (5) Low serum potassium: K=3.2 on admission and improving -Repeat chemistry in AM (6) Elevated CK: CK elevated at 1250 on admission and now improving. Early rhabdo secondary to prolonged down time earlier today. 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 Unsteady gait. Patient follows with Neurology -Continue Carbidopa-Levodopa -Continue Ativan PRN -Continue Primidone -Continue Propranolol (8) Back pain: Chronic LBP. Improved with IV Tylenol and Dexamethasone -Lidoderm patch -Scheduled Tylenol 1gm PO TID -Consider MRI to evaluate L spine. However, no neurological deficits or evidence of cord compression/cauda equina present on exam at this time d/c baclofen secondary to above (9) Hypertension: Blood pressure mildly elevated at 144/82 -Continue home medications - Lisinopril, Propranolol (10) Depression with anxiety: Chronic. Stable -Continue Sertraline -Continue Lorazepam PRN (11) Dyslipidemia: Chronic -Continue Crestor (12) Ataxia: Noted. -Fall precautions -PT/OT evaluation Lyme neg TSH WNL Ppx - low risk for DVT Code - Full per discussion with patient Dispo - Admit to medical floor CT Chest reports some very mild RUL ground glass opacities - patient does not endorse symptoms concerning for COVID-19 at this time - specifically denies fevers/chills/cough/SOB/CP/loss of taste or smell. No sick contacts. No recent travel. Patient works at a [employer] at [employer] - reports wearing a mask and staying away from people. Will not test at this time. Admission and Anticipated Discharge Date Admission Date: May 05, 2020 Subjective Pt again notes feeling better but still feels unsteady walking overall. Tolerating PO without issue. Bowel movement yesterday, none today yet. Pt denies fever, SOB, chest pain, abd pain, n/v, LE pain or swelling. Ongoing LBP. Review of Systems Review of Systems: Pertinent positives and negatives reviewed in HPI--all others negative Physical Exam Constitutional: WD/WN, vitals as above Eyes: normal visual dennis by confrontation and + anicteric sclerae Neck: normal visual inspection and trachea midline Respiratory: normal respiratory effort, lungs clear to auscultation Cardiovascular: Rate/Rhythm: regular rate and regular rhythm Gastrointestinal (Abdomen): Inspection/Auscultation: abdomen not distended Percussion/Palpation: abdomen soft; abdomen nontender Musculoskeletal: Head/Neck/Chest: normocephalic and head atraumatic Skin: no rashes, warm and dry Neurologic: awake; not confused Speech / Cognition: normal speech Psychiatric: A+Ox3, euthymic affect Results & Data Results & Data ([facility]) Vital Signs (Past 12 Hours) Vital Signs Temp Pulse Resp BP Pulse Ox 05/07/20 15:22 36.6 C 76 18 166/76 H 97 05/07/20 07:30 36.4 C L 75 18 156/81 H 94 PG Care Time/CCT Total # of Minutes Spent Total Time Spent with Patient: Total time spent is greater than 50% in coordination of care (as documented) at patient's floor/unit and/or counseling patient: Coding Level of Care Code 93155 Subseq Hosp Care Lvl 3 Diagnoses Fall W19.XXXA Encounter type: initial encounter Urinary incontinence R32 Urinary Incontinence type: unspecified incontinence Constipation K59.00 Constipation type: unspecified constipation type Low magnesium level R79.0 Low serum potassium E87.6 Elevated CK R74.8 Atypical Parkinsonism G20 Back pain M54.5; G89.29 Back pain location: low back pain Chronicity: chronic Back pain laterality: unspecified Sciatica presence: unspecified whether sciatica present Hypertension I10 Hypertension type: essential hypertension Depression with anxiety F41.8 Dyslipidemia E78.5 Ataxia R27.0 (1) Fall Encounter type: initial encounter Qualified Code(s): W19.XXXA - Unspecified fall, initial encounter (2) Urinary incontinence Urinary Incontinence type: unspecified incontinence Qualified Code(s): R32 - Unspecified urinary incontinence (3) Constipation Constipation type: unspecified constipation type Qualified Code(s): K59.00 - Constipation, unspecified (4) Back pain Back pain location: low back pain Chronicity: chronic Back pain laterality: unspecified Sciatica presence: unspecified whether sciatica present Qualified Code(s): M54.5 - Low back pain; G89.29 - Other chronic pain (5) Hypertension Hypertension type: essential hypertension Qualified Code(s): I10 - Essential (primary) hypertension
[2020-05-07] MEDS: LIDOCAINE 5% 1 PATCH TD SCH (20:27)
[2020-05-07] MEDS: TEMAZEPAM 7.5 MG CAPSULE PO SCH (20:27)
[2020-05-08] MEDS: LORazepam 1 MG TAB PO PRN ×3 (04:16→21:07)
[2020-05-08] MEDS: ACETAMINOPHEN 500 MG TAB PO SCH ×3 (05:21→21:06)
[2020-05-08] MEDS: CARBIDOPA/LEVODOPA 25/100MG TAB PO SCH ×3 (08:41→21:08)
[2020-05-08] MEDS: SENNA 8.6 MG TAB PO SCH (08:41)
[2020-05-08] MEDS: lisinopriL 5 MG TAB PO SCH (08:41)
[2020-05-08] MEDS: PRIMIDONE 50 MG TAB PO SCH ×2 (08:41→21:08)
[2020-05-08] MEDS: ROSUVASTATIN CALCIUM 5 MG TAB PO SCH (08:41)
[2020-05-08] MEDS: ASPIRIN 81 MG ECTAB PO SCH (08:41)
[2020-05-08] MEDS: LACTOBACILLUS ACIDOPHILUS 1 GM PACK PO SCH ×3 (08:41→17:47)
[2020-05-08] MEDS: SERTRALINE HCL 100 MG TABLET PO SCH ×2 (08:41→21:08)
[2020-05-08] MEDS: PROPRANOLOL HCL 60 MG LA CAP PO SCH (08:41)
[2020-05-08] MEDS: SODIUM CHLORIDE 0.45 % 1,000 ML IV SCH (09:31)
[2020-05-08] MEDS ORDERED: SODIUM CHLORIDE 0.65% NA SOLN 45 ML (OCEAN) PRN (10:12)
--- NOTE | 2020-05-08 11:40 | Hospitalist Progress Note ---
Date of Service May 08, 2020 Assessment & Plan (1) Fall: Patient with mechanical fall in the home, inability to get up due to back pain and weakness. She has an unsteady gait, requires assistance to the bedside commode. No head trauma or LOC -Fall precautions -PT/OT recs for rehab, awaiting insurance auth (2) Urinary incontinence: Patient reports episode of urinary incontinence- large volume of urine passed without sensation of full bladder or urge to urinate. This has been happening to her since beginning the Baclofen appx 2 weeks ago - occurs only at night. She also reports constipation - last BM 6 days ago. She is without sad dle anesthesia, rectal tone intact, MS 5/5 in BL LE. ?urinary retention throughout the day with overflow incontinence at night? ?constipation contributing to urinary incontinence? No evidence of UTI on UA -Monitor I/Os, bladder scan and straight cath if needed -Tx of constipation as below -Consider spinal imaging if not improving off of baclofen - MRI - patient states she would need to be sedated for this due to extreme claustrophobia (3) Constipation: Moderate stool burden noted on CT. Patient reports no BM x 6 days. -Dulcolax 10mg [place] x 1 -Colace 100mg po BID PRN -Miralax PRN could be side effect of baclofen also, monitor Add probiotics, MOM, senna (4) Low magnesium level: Mg = 1.7 on admission and improving Monitor (5) Low serum potassium: K=3.2 on admission and improving -Repeat chemistry in AM (6) Elevated CK: CK elevated at 1250 on admission and now improving. Early rhabdo secondary to prolonged down time earlier today. 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 Unsteady gait. Patient follows with Neurology -Continue Carbidopa-Levodopa -Continue Ativan PRN -Continue Primidone -Continue Propranolol (8) Back pain: Chronic LBP. Improved with IV Tylenol and Dexamethasone -Lidoderm patch -Scheduled Tylenol 1gm PO TID -Consider MRI to evaluate L spine. However, no neurological deficits or evidence of cord compression/cauda equina present on exam at this time d/c baclofen secondary to above (9) Hypertension: Blood pressure mildly elevated at 144/82 -Continue home medications - Lisinopril, Propranolol (10) Depression with anxiety: Chronic. Stable -Continue Sertraline -Continue Lorazepam PRN (11) Dyslipidemia: Chronic -Continue Crestor (12) Ataxia: Noted. -Fall precautions -PT/OT evaluation Lyme neg TSH WNL Ppx - low risk for DVT Code - Full per discussion with patient Dispo - Admit to medical floor CT Chest reports some very mild RUL ground glass opacities - patient does not endorse symptoms concerning for COVID-19 at this time - specifically denies fevers/chills/cough/SOB/CP/loss of taste or smell. No sick contacts. No recent travel. Patient works at a [employer] at [employer] - reports wearing a mask and staying away from people. Will not test at this time. Admission and Anticipated Discharge Date Admission Date: May 05, 2020 Subjective Pt is feeling better but still feels unsteady walking overall. Using the walker. Tolerating PO without issue. Bowel movement yesterday and today. No diarrhea. Feels probiotic, MOM, senna helped. Pt denies fever, SOB, chest pain, abd pain, n/v, LE pain or swelling. Ongoing LBP. Review of Systems Review of Systems: Pertinent positives and negatives reviewed in HPI--all others negative Physical Exam Constitutional: WD/WN, vitals as above Eyes: normal visual dennis by confrontation and + anicteric sclerae Neck: normal visual inspection and trachea midline Respiratory: normal respiratory effort, lungs clear to auscultation Cardiovascular: Rate/Rhythm: regular rate and regular rhythm Gastrointestinal (Abdomen): Inspection/Auscultation: abdomen not distended Percussion/Palpation: abdomen soft; abdomen nontender Musculoskeletal: Head/Neck/Chest: normocephalic and head atraumatic Skin: no rashes, warm and dry Neurologic: awake; not confused Speech / Cognition: normal speech Psychiatric: A+Ox3, euthymic affect Results & Data Results & Data ([facility]) Vital Signs (Past 12 Hours) Vital Signs Temp Pulse Resp BP Pulse Ox 05/08/20 03:42 36.9 C 74 16 155/83 H 95 PG Care Time/CCT Total # of Minutes Spent Total Time Spent with Patient: Total time spent is greater than 50% in coordination of care (as documented) at patient's floor/unit and/or counseling patient: Coding Level of Care Code 96134 Subseq Hosp Care Lvl 3 Diagnoses Fall W19.XXXA Encounter type: initial encounter Urinary incontinence R32 Urinary Incontinence type: unspecified incontinence Constipation K59.00 Constipation type: unspecified constipation type Low magnesium level R79.0 Low serum potassium E87.6 Elevated CK R74.8 Atypical Parkinsonism G20 Back pain M54.5; G89.29 Back pain location: low back pain Chronicity: chronic Back pain laterality: unspecified Sciatica presence: unspecified whether sciatica present Hypertension I10 Hypertension type: essential hypertension Depression with anxiety F41.8 Dyslipidemia E78.5 Ataxia R27.0 (1) Fall Encounter type: initial encounter Qualified Code(s): W19.XXXA - Unspecified fall, initial encounter (2) Urinary incontinence Urinary Incontinence type: unspecified incontinence Qualified Code(s): R32 - Unspecified urinary incontinence (3) Constipation Constipation type: unspecified constipation type Qualified Code(s): K59.00 - Constipation, unspecified (4) Back pain Back pain location: low back pain Chronicity: chronic Back pain laterality: unspecified Sciatica presence: unspecified whether sciatica present Qualified Code(s): M54.5 - Low back pain; G89.29 - Other chronic pain (5) Hypertension Hypertension type: essential hypertension Qualified Code(s): I10 - Essential (primary) hypertension
[2020-05-08] MEDS: LIDOCAINE 5% 1 PATCH TD SCH (21:07)
[2020-05-08] MEDS: TEMAZEPAM 7.5 MG CAPSULE PO SCH (21:07)
[2020-05-09] MEDS: ACETAMINOPHEN 500 MG TAB PO SCH ×2 (06:12→13:55)
[2020-05-09] MEDS: CARBIDOPA/LEVODOPA 25/100MG TAB PO SCH ×2 (08:54→13:55)
[2020-05-09] MEDS: SENNA 8.6 MG TAB PO SCH (08:54)
[2020-05-09] MEDS: PROPRANOLOL HCL 60 MG LA CAP PO SCH (08:54)
[2020-05-09] MEDS: SERTRALINE HCL 100 MG TABLET PO SCH (08:54)
[2020-05-09] MEDS: PRIMIDONE 50 MG TAB PO SCH (08:54)
[2020-05-09] MEDS: ASPIRIN 81 MG ECTAB PO SCH (08:54)
[2020-05-09] MEDS: LORazepam 1 MG TAB PO PRN ×2 (08:54→13:55)
[2020-05-09] MEDS: ROSUVASTATIN CALCIUM 5 MG TAB PO SCH (08:54)
[2020-05-09] MEDS: lisinopriL 5 MG TAB PO SCH (08:55)
[2020-05-09] MEDS: LACTOBACILLUS ACIDOPHILUS 1 GM PACK PO SCH ×2 (08:55→11:42)
[2020-05-09 10:31] LABS: Basophils # (auto) 0.01 K/uL (0-0.2); Basophils % (auto) 0.2 %; Eosinophils # (auto) 0.27 K/uL (0-0.5); Eosinophils % (auto) 5.9 %; Hematocrit (blood only) 39.8 % (37-47); Hemoglobin 12.2 g/dL (12.0-16.0); Immature Granulocytes # (auto) 0.01 K/uL (0.00-0.02); Immature Granulocytes % (auto) 0.2 %; Lymphocytes # (auto) 1.38 K/uL (1.2-3.4); Lymphocytes % (auto) 30.3 %; Mean Corpuscular Hgb Conc 30.7 g/dL (32-36); Mean Corpuscular Volume 94.5 fL (80-100); Mean Platelet Volume 9.8 fL (7.4-10.4); Monocytes # (auto) 0.32 K/uL (0.11-0.59); Neutrophils # (auto) 2.56 K/uL (1.4-6.5); Neutrophils % (auto) 56.4 %; Platelet Count 274 K/uL (130-400); RDW Coefficient of Variation 13.4 % (11.5-14.5); RDW Standard Deviation 46.4 fL (36.4-46.3); Red Blood Count 4.21 M/uL (4.2-5.4); White Blood Count 4.55 K/uL (4.8-10.8)
[2020-05-09 10:59] LABS: BUN Creatinine Ratio 18.7 (10-20); Calcium 8.8 mg/dl (8.5-10.1); Creatinine Clr Calc Pharmacy 38.9 ml/min; Est GFR (African American) 64.3; Est GFR (Non-African American) 55.5; Potassium 4.1 mmol/L (3.5-5.1)
--- NOTE | 2020-05-09 12:27 | Hospitalist Progress Note ---
Date of Service May 09, 2020 Assessment & Plan (1) Fall: Patient with mechanical fall in the home, inability to get up due to back pain and weakness. She has an unsteady gait, requires assistance to the bedside commode. No head trauma or LOC -Fall precautions -PT/OT recs for rehab, awaiting insurance auth (2) Urinary incontinence: Patient reports episode of urinary incontinence at admission and one overnight 05/09- does report feeling urge to urinate but was unable to get to the bathrooom in time. She has been having incontinence since beginning the Baclofen appx 2 weeks ago - occurs only at night. She also reported constipation which is now resolved. She is without saddle anesthesia, reports left leg is weaker at baseline than right. ?urinary retention throughout the day with overflow incontinence at night? No evidence of UTI on UA -Monitor I/Os, bladder scan and straight cath if needed -Tx of constipation as below -Consider spinal imaging if not improving off of baclofen - MRI - patient states she would need to be sedated for this due to extreme claustrophobia - will hold off at this point given that she is experiencing urgency with the incontinence and is not having any numbness or back pain. (3) Constipation: Resolved continue Colace 100mg po BID PRN, Miralax PRN, probiotics, MOM, senna (4) Low magnesium level: Resolved (5) Low serum potassium: resolved (6) Elevated CK: CK elevated at 1250 on admission and now trending down Early rhabdo secondary to prolonged down time earlier today. 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 Unsteady gait. Patient follows with Neurology -Continue Carbidopa-Levodopa -Continue Ativan PRN -Continue Primidone -Continue Propranolol (8) Back pain: Chronic LBP. Improved with IV Tylenol and Dexamethasone. Denies back pain today -Lidoderm patch -Scheduled Tylenol 1gm PO TID -Will hold off on MRI of the spine as patient is no longer experiencing back pain. (9) Hypertension: Blood pressures acceptable - mildly elevated at times -Continue home medications - Lisinopril, Propranolol (10) Depression with anxiety: Chronic. Stable -Continue Sertraline -Continue Lorazepam PRN (11) Dyslipidemia: Chronic -Continue Crestor (12) Ataxia: Noted. -Fall precautions -PT/OT evaluation Lyme neg TSH WNL (13) Abnormal chest CT: CT Chest reports some very mild RUL ground glass opacities - patient does not endorse symptoms concerning for COVID-19 at this time - specifically denies fevers/chills/cough/SOB/CP/loss of taste or smell. No sick contacts. No recent travel. Patient works at a [employer] at [employer] - reports wearing a mask and staying away from people. Will not test at this time. (14) DVT prophylaxis: SCDs, heparin subq Admission and Anticipated Discharge Date Admission Date: May 05, 2020 Subjective Ms. Dykes is feeling a bit anxious about some things at home but otherwise is doing ok. Denies back pain or numbness. She did have an episode of urinary incontinence overnight but describes this as urgency without being able to get out bed in time to get to the bathroom. No incontinence of bowel. Left leg weakness on exam which patient reports is baseline since a surgery on that leg in the past. ROS Constitutional: no chills, aches, sweats or fever Respiratory: no sob,cough, sputum, or wheezing Cardiac: no chest pain, palpitations, edema, orthopnea or lightheadedness GI: no abdominal pain, nausea, vomiting, diarrhea or constipation : no dysuria or hesitancy Extremities: see HPI Skin: no rash All other systems reviewed and negative Physical Exam Physical Exam: General: no distress Eyes: normal inspection, PERLL Respiratory: chest non tender, clear to auscultation, normal breath sounds, no respiratory distress, no accessory muscle use Cardiac: regular rate and rhythm, no rub or gallop, no murmur, no edema, no jvd GI/: active bowel sounds, no abd pain or tenderness, soft, non distended Extremities: normal range of motion, left leg weaker than right (patient reports this is baseline), non tender Neuro/Psych: alert and oriented x 3, anxious, resting tremor Skin: normal color, dry Results & Data Results & Data ([facility]) Vital Signs (Past 12 Hours) Vital Signs Temp Pulse Resp BP Pulse Ox 05/09/20 08:00 36.3 C L 77 20 115/70 95 PG Care Time/CCT Total # of Minutes Spent Total Time Spent with Patient: Total time spent is greater than 50% in coordination of care (as documented) at patient's floor/unit and/or counseling patient: Coding Level of Care Code 77583 Subseq Hosp Care Lvl 3 Diagnoses Fall W19.XXXA Encounter type: initial encounter Urinary incontinence R32 Urinary Incontinence type: unspecified incontinence Constipation K59.00 Constipation type: unspecified constipation type Low magnesium level R79.0 Low serum potassium E87.6 Elevated CK R74.8 Atypical Parkinsonism G20 Back pain M54.5; G89.29 Back pain laterality: unspecified Back pain location: low back pain Chronicity: chronic Sciatica presence: unspecified whether sciatica present Hypertension I10 Hypertension type: essential hypertension Depression with anxiety F41.8 Dyslipidemia E78.5 [address]tax[address] R93.89 DVT prophylaxis Z29.9 (1) Urinary incontinence Urinary Incontinence type: unspecified incontinence Qualified Code(s): R32 - Unspecified urinary incontinence (2) Back pain Back pain laterality: unspecified Back pain location: low back pain Chronicity: chronic Sciatica presence: unspecified whether sciatica present Qualified Code(s): M54.5 - Low back pain; G89.29 - Other chronic pain (3) Hypertension Hypertension type: essential hypertension Qualified Code(s): I10 - Essential (primary) hypertension (4) Constipation Constipation type: unspecified constipation type Qualified Code(s): K59.00 - Constipation, unspecified (5) Fall Encounter type: initial encounter Qualified Code(s): W19.XXXA - Unspecified fall, initial encounter
--- NOTE | 2020-05-09 15:05 | Discharge Summary ---
Date of Service May 09, 2020 Admission HPI Per Admitting Provider Mavis Dykes is a 74yo C female with history of atypical PD, HTN, HLP, CKD presenting after a fall in the home. Patient was recently started on Baclofen to treat muscle spasm in her lower back appx 2 weeks ago. Since she started taking this medication she reports difficulty controlling her bladder. She states that she has frequent episodes of urinary incontinence occurring only at night. She denies dysuria or urgency. No foul smell to the urine or hematuria. She states that she normally feels the sensation of a full bladder and is able to feel when she needs to urinate. This morning she got up and went to the bathroom. She had an episode of urinary incontinence - very large volume. Patient states that she had absolutely no control over her urination and just kept urinating. She then slid off the commode onto her knees and was unable to get up due to diffuse weakness and back pain. She thinks she was down on the ground for a few hours before crawling to a phone to call for assistance. +Constipation - Patient has not had a BM x 6 days +Decreased appetite +Back pain at baseline - now improved after receiving IV Tylenol. ER Course: Ofirmev, Dexamethasone, Mg x 1gm, KCl x 10mEq Principal Diagnosis Fall, rhabdo Discharge Exam see progress note for PE Discharge Data Allergies Allergy/AdvReac Type Severity Reaction Status Date / Time Sulfa (Sulfonamide Allergy Intermediate HIVES/SWELLING Verified 05/05/20 19:24 Antibiotics) ALL OVER STEROID PILL Allergy Intermediate DEPRESSION Uncoded 05/05/20 19:24 OINTMENT USED FOR Allergy Unknown CAUSED Uncoded 05/05/20 19:24 SWELLING/INFLAM. SWELLING Consultations 05/05/20 20:53 ED Decision to Admit Stat Ordered Studies 05/05/20 18:40 CT abd pelvis IV con only Stat CT chest w con Stat CT head/brain wo con Stat 05/05/20 18:41 CT cervical spine wo con Stat Hospital Course (1) Fall: Patient with mechanical fall in the home, inability to get up due to back pain and weakness. She has an unsteady gait, requires assistance to the bedside commode. No head trauma or LOC -Fall precautions (2) Urinary incontinence: Patient reports episode of urinary incontinence at admission and one overnight 05/09- does report feeling urge to urinate but was unable to get to the bathrooom in time. She has been having incontinence since beginning the Baclofen appx 2 weeks ago - occurs only at night. She also reported constipation which is now resolved. She is without saddle anesthesia, reports left leg is weaker at baseline than right. ?urinary retention throughout the day with overflow inc ontinence at night? No evidence of UTI on UA -Monitor I/Os, bladder scan and straight cath if needed -Tx of constipation as below -Consider spinal imaging if not improving off of baclofen - MRI - patient states she would need to be sedated for this due to extreme claustrophobia - will hold off at this point given that she is experiencing urgency with the incontinence and is not having any numbness or back pain. (3) Constipation: Resolved continue Colace 100mg po BID PRN, Miralax PRN, probiotics, MOM, senna (4) Low magnesium level: Resolved (5) Low serum potassium: resolved (6) Elevated CK: CK elevated at 1250 on admission and now trending down Early rhabdo secondary to prolonged down time earlier today. 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 Unsteady gait. Patient follows with Neurology -Continue Carbidopa-Levodopa -Continue Ativan PRN -Continue Primidone -Continue Propranolol (8) Back pain: Chronic LBP. Improved with IV Tylenol and Dexamethasone. Denies back pain today -Lidoderm patch -Scheduled Tylenol 1gm PO TID -Will hold off on MRI of the spine as patient is no longer experiencing back pain. (9) Hypertension: Blood pressures acceptable - mildly elevated at times -Continue home medications - Lisinopril, Propranolol (10) Depression with anxiety: Chronic. Stable -Continue Sertraline -Continue Lorazepam PRN (11) Dyslipidemia: Chronic -Continue Crestor (12) Ataxia: Noted. -Fall precautions -PT/OT evaluation Lyme neg TSH WNL (13) Abnormal chest CT: CT Chest reports some very mild RUL ground glass opacities - patient does not endorse symptoms concerning for COVID-19 at this time - specifically denies fevers/chills/cough/SOB/CP/loss of taste or smell. No sick contacts. No recent travel. Patient works at a [employer] at [employer] - reports wearing a mask and staying away from people. Will not test at this time. (14) DVT prophylaxis: SCDs, heparin subq while inpatient Total Time Total Time Spent Total Time Spent (In Minutes): greater than 30 minutes Discharge Plan Discharge Items Patient Disposition: Transfer Inpatient Rehab Fac Reason For Visit: ELEVATED CK, WEAKNESS Discharge Diagnosis: Fall,rhabdomyelosis Activity: Resume your previous activity Non-emergency contact: Primary Care Provider Call non-emergency contact if: you have any medication questions Follow-up/Referrals: Daniel Magdaleno MD [Primary Care Provider] - (PATIENT BEING D/CD TO [facility]) Diet: Heart Healthy Addtl Attending Provider Instructions: (1) Fall: Patient with mechanical fall in the home, inability to get up due to back pain and weakness. No head trauma or LOC. No fractures on CT cervical spine or CT abd/pelvis (2) Urinary incontinence: Possibly secondary to Baclofen as it started around the time she began taking it. This was discontinued. Has had one further episode of incontinence since admission last night. Not concerning for cauda equina at this point - no back pain today or saddle anesthesia, had normal bm, had urgency associated with incontinence. Left leg is weaker at baseline than right per patient. 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 Unsteady gait. Patient follows with Neurology -Continue Carbidopa-Levodopa -Continue Ativan PRN -Continue Primidone -Continue Propranolol (8) Back pain: Chronic LBP. Improved with IV Tylenol and Dexamethasone. Denies back pain today -Lidoderm patch -Scheduled Tylenol 1gm PO TID -Will hold off on MRI of the spine as patient is no longer experiencing back pain. (9) Hypertension: Blood pressures acceptable - mildly elevated at times -Continue home medications - Lisinopril, Propranolol (10) Depression with anxiety: Chronic. Stable -Continue Sertraline -Continue Lorazepam PRN (11) Dyslipidemia: Chronic -Continue Crestor (12) Ataxia: Noted. -Fall precautions -PT/OT evaluation Lyme neg TSH WNL (13) Abnormal chest CT: CT Chest reports some very mild RUL ground glass opacities - patient does not e ndorse symptoms concerning for COVID-19 at this time - specifically denies fevers/chills/cough/SOB/CP/loss of taste or smell. No sick contacts. No recent travel. Not tested for COVID given lack of any symptoms. Pending Studies at Discharge: No Stand-Alone Forms: My [facility] Skilled Items Patient informed of condition?: Yes DNR: No Discharge Level of Care: Acute rehab Communicable Disease: No Discharge Prognosis: Stable Lines: None Urinary Catheter: No Medications and DC Order Prescriptions: New sennosides [Senokot] 8.6 mg Tablet 8.6 mg PO QAM Qty: 30 RF: 0 polyethylene glycol 3350 [Miralax] 17 gram Powder In Packet 17 g PO DAILY PRN (Reason: constipation) Qty: 30 RF: 0 acetaminophen 500 mg Tablet 1,000 mg PO Q8 Qty: 30 RF: 0 lidocaine 5 % Adhesive Patch,Medicated 1 patch transdermal HS Qty: 30 RF: 0 docusate sodium 100 mg Capsule 100 mg PO BID PRN (Reason: constipation) Qty: 30 RF: 0 Floranex 100 million cell Granules In Packet 1 g PO TIDM Qty: 30 RF: 0 Continued lisinopril 5 mg tablet 5 mg PO DAILY Qty: 90 RF: 3 primidone 50 mg tablet 50 mg PO BID Qty: 150 RF: 5 sertraline 100 mg tablet 100 mg PO BID Qty: 180 RF: 3 temazepam 7.5 mg capsule 7.5 mg PO HS Qty: 90 RF: 1 lorazepam 1 mg tablet 1 mg PO TID PRN (Reason: anxiety and tremor) 90 Days Qty: 270 RF: 1 rosuvastatin 5 mg tablet 5 mg PO DAILY Qty: 30 RF: 5 propranolol 60 mg capsule,extended release 24 hr 60 mg PO DAILY 90 Days Qty: 90 RF: 1 fluticasone propionate [Flonase Allergy Relief] 50 mcg/actuation spray,suspension 1 sprays INTNAS BID Qty: 9.9 RF: 3 carbidopa-levodopa 25-100 mg tablet 1 tab PO TID 30 Days Qty: 270 RF: 1 cholecalciferol (vitamin D3) 1,000 unit capsule 1,000 units PO DAILY Qty: 30 RF: 0 coenzyme Q10 [CoQ-10] 100 mg capsule 200 mg PO DAILY Qty: 30 RF: 0 aspirin 81 mg tablet,delayed release (DR/EC) 81 mg PO DAILY RF: 0 meclizine 25 mg tablet 25 mg PO TID PRN (Reason: dizziness) Qty: 21 RF: 0 Repatha SureClick 140 mg/mL pen injector 140 mg SQ .TWICE A MONTH RF: 0 Discharge Orders: Discharge Order (Routine); Ordered 05/09/20 Ordered By: Jyoti Shin/Other Patient Handouts: Fall Prevention Assessing Risk, Sodium (Blood) Admission Data Admit Date/Time: 05/05/20 23:05 Attending Provider: Vance Barone Admit Provider: Yris Ariza Primary Care Provider: Daniel Magdaleno V. Other Providers: Yris Ariza ; [facility] ; [facility] Other Interventions: Discharge Summary Assessment (RN) Last Done: 05/09/20 15:25 Supervising Physician Co-Signing Physician Notes Patient seen and examined on the day of discharge. I agree with the discharge summary by Jyoti DE SANTIAGO. I have reviewed the chart including labs, imaging and plans for discharge. patient doing well, ready for rehab her strength is improving, pain is controlled, eating well - Fall at home, generalized weakness: she can go to rehab today to improve strength and mobility - Mild rhabdomyolysis: resolved, stay well hydrated Coding Level of Care Code D/C Day Management >30 mins Diagnoses Fall W19.XXXA Encounter type: initial encounter Urinary incontinence R32 Urinary Incontinence type: unspecified incontinence Constipation K59.00 Constipation type: unspecified constipation type Low magnesium level R79.0 Low serum potassium E87.6 Elevated CK R74.8 Atypical Parkinsonism G20 Back pain M54.5; G89.29 Back pain laterality: unspecified Back pain location: low back pain Chronicity: chronic Sciatica presence: unspecified whether sciatica present Hypertension I10 Hypertension type: essential hypertension Depression with anxiety F41.8 Dyslipidemia E78.5 Atax[address]27.[address] R93.89 DVT prophylaxis Z29.9
[2020-05-09] MEDS ORDERED: HEPARIN SOD 5,000 UNIT/0.5 ML VIAL SQ SCH (21:00)
== END 2020-05-09 15:43 | DRG 92 ==
LOC: ED 17:52 → SUATTDRO 23:05 → 2N 23:05 → INTOOBSV 23:05 → 2N 23:39 → 3N 05-08 03:46